=== PATIENT | female | born 1995 | race Caucasian/White ===

== ENCOUNTER 2019-10-25 13:34 | Inpatient (IN) | payer OTHER, SELFPAY ==
[2019-10-25] VITALS (59 sets, daily range): BP systolic 72–108; BP diastolic 40–67; PULSE 108–212; RESP 19–26; TEMP 36.8–39.4; O2SAT 96–100; BMI 28.3; BMI 27.8
[2019-10-25 10:23] LABS: ROM Internal Control Test YES-OK TO RESULT pt. (Internal QC); ROM Patient Test Negative (Negative)
[2019-10-25 10:26] LABS: Fetal Fibronectin Negative
[2019-10-25 10:36] LABS: Absolute Lymphocyte Count 1.05 X10^3/uL (0.83-4.51); Absolute Neutrophil Count 17.5 X10^3/uL (2.0-7.7); Basophil# 0.04 X10^3/uL; Basophil% 0.2 % (0-1); Eosinophil# 0.04 X10^3/uL; Eosinophils% 0.2 % (0-5); Hematocrit 32.9 % (37-47); Hemoglobin 11.3 g/dL (12.0-15.0); Lymphocyte # 1.05 X10^3/ul (4.0); Lymphocyte % 5.3 % (19-41); Mean Corp Hgb Conc 34.3 g/dL (32-36); Mean Corpuscular Hgb 29.6 pg (27.0-32.0); Mean Corpuscular Volume 86.1 fL (81-99); Mean Platelet Vol. 9.4 fl (6.2-12.0); Monocyte# 0.69 X10^3/uL; Monocyte% 3.5 % (0-10); NRBC Flagged by Analyzer 0 % (0-5); Neutrophil % 88.5 % (47-70); POSITIVE MORPHOLOGY YES; Platelet Count 219 K/mm3 (150-450); RBC Distribution Width CV 13.4 % (11.6-14.6); RBC Distribution Width SD 41.8 fl (35.1-43.9); Red Blood Count 3.82 M/mm3 (4.2-5.4); White Blood Count 19.8 K/mm3 (4.4-11.0)
[2019-10-25 10:37] LABS: Differential Indicated SCAN CRITERIA MET
[2019-10-25] MEDS: Lactated Ringers 1,000 ML 999 ML IV (10:43)
[2019-10-25] MEDS: Acetaminophen 500 MG Tablet 1000 MG PO (10:45)
[2019-10-25 10:55] LABS: ALB/GLOB Ratio 0.6 RATIO (0.9-2.4); AST(SGOT) 25 U/L (15-37); Alanine Aminotransfer ALT/SGPT 21 U/L (13-56); Albumin, Serum 2.8 g/dL (3.2-5.0); Alkaline Phosphatase 89 U/L (45-117); Anion Gap 10 (5-15); BUN 3 mg/dL (7-18); BUN/Creat Ratio 5.7 RATIO (10-20); Calcium,Total 8.1 mg/dL (8.5-10.1); Chloride 97 mmol/L (98-107); Creatinine, Serum 0.52 mg/dL (0.55-1.02); EST Glomerular Filtration Rate 150 mL/min (>60); Est Glom Filt Rate - Afr Amer 182 mL/min (>60); Estimated Creatinine Clearance 135.62 ml/min; Globulin 4.6 g/dL (2.2-4.2); Glucose 106 mg/dL (74-106); Potassium 2.6 mmol/L (3.5-5.1); Protein, Total 7.4 g/dL (6.4-8.2); Sodium Level 131 mmol/L (136-145)
[2019-10-25 10:59] LABS: Differential Comment SCANNED
--- NOTE | 2019-10-25 12:27 | PCM.CONS.GEN ---
Problem List (1) SIRS (systemic inflammatory response syndrome) Status: Acute Reason for Consult Date of Consultation: 10/25/19 Reason for Consultation: Evaluation for possible sepsis History of Present Illness: The patient is a 24 year old F who is 26 weeks who was seen and evaluated at the OB unit for fever chills and myalgias. Patient symptoms started 4 days prior to her admission. Patient denied any travel. Denies any sick contact. Patient was found to have markedly elevated WBC count, febrile with tachycardia. An assessment of sepsis of undetermined etiology was made. The hospitalist service was consulted to assist with evaluation and management of patient. Past Medical History Allergies No Known Allergies Allergy (Verified 10/25/19 10:11) Home Medications: Ambulatory Orders Medication Instructions Recorded Vits [Prenatabs FA] 1 tab PO DAILY 10/25/19 Patient Problems: Active and Suspected Problems SIRS (systemic inflammatory response syndrome) (Acute) - Physical Exam Vitals/I&O's: Vital Signs Temp Pulse BP Pulse Ox 102.9 F H 124 H 102/59 L 96 10/25/19 10:41 10/25/19 11:29 10/25/19 09:33 10/25/19 11:29 Weight: 72.575 kg Body Mass Index (BMI) 28.3 Laboratory Results 10/25/19 09:15: WBC 19.8 H, RBC 3.82 L, Hgb 11.3 L, Hct 32.9 L, MCV 86.1, MCH 29.6, MCHC 34.3, RDW Std Deviation 41.8, RDW Coeff of [place] 13.4, Plt Count 219, MPV 9.4, Immature Gran % (Auto) 2.300 H, Neut % (Auto) 88.5 H, Lymph % (Auto) 5.3 L, [place] % (Auto) 3.5, Eos % (Auto) 0.2, Baso % (Auto) 0.2, Absolute Neuts (auto) 17.5 H, Absolute Lymphs (auto) 1.05, Nucleated RBC % 0, Differential Comment SCANNED 10/25/19 09:15: Sodium 131 L, Potassium 2.6 L*, Chloride 97 L, Carbon Dioxide 24.0, Anion Gap 10, BUN 3 L, Creatinine 0.52 L, Estim Creat Clear Calc 135.62, Est GFR (MDRD) Af Amer 182, Est GFR (MDRD) Non-Af 150, BUN/Creatinine Ratio 5.7 L, Glucose 106, Calcium 8.1 L, Total Bilirubin 0.90, AST 25, ALT 21, Alkaline Phosphatase 89, Total Protein 7.4, Albumin 2.8 L, Globulin 4.6 H, Albumin/Globulin Ratio 0.6 L 10/25/19 09:42: Fibronectin Negative 10/25/19 09:42: Vag Amniotic Fld Detect Negative Assessment/Plan All Active Problems SIRS (systemic inflammatory response syndrome) (Acute)
--- NOTE | 2019-10-25 12:30 | RAD_ITS ---
STUDY: X-RAY CHEST REASON FOR EXAM: Female, 24 years old. Pneumonia, fever, cough, body aches, TECHNIQUE: Single AP portable view of the chest. COMPARISON: None. FINDINGS: There is evidence of a patchy right lower lobe infiltrate as well as a right suprahilar infiltrate. There is no demonstrated pleural abnormality. Normal size heart. Normal mediastinum and joel. Normal visualized pulmonary arteries. Normal visualized aortic arch and descending thoracic aorta. Normal visualized thoracic spine. Normal visualized ribs, clavicles, and shoulders. There is no demonstrated abnormality of the visualized soft tissue structures of the upper abdomen. RAD/Chest 1 View (Portable) IMPRESSION: Patchy right lower lobe and right suprahilar infiltrates. Electronically Signed: Luca Garcia, at 15:48 EDT , Service support ,
[2019-10-25 13:29] LABS: Mucous, Urine 0 SEEN /hpf (<or=2+); Red Blood Cells-Urine 0 SEEN /hpf (0-5)
[2019-10-25 13:32] LABS: Color, Urine Yellow (Yellow); Glucose, Dipstick Normal (Normal); Leukocyte Esterase-Dipstick 100 /ul (Negative); Nitrite-Dipstick Negative (Negative); Occult Blood-Urine 25 /ul (Negative); Protein-Dipstick Negative (Negative); Specific Gravity, Urine 1.005 (1.002-1.030); Urine Bilirubin Dipstick Negative (Negative); Urine Clarity Sl. Cloudy (Clear); Urine Urobilinogen Normal (Normal); Urine pH 6.5 (5.0 - 8.0)
[2019-10-25 13:36] LABS: Ketone-Dipstick 150 mg/dl (Negative)
[2019-10-25 13:38] LABS: Bacteria 1+ /hpf (None Seen); Squamous Epithelial Cells - UA 5-10 SEEN /hpf (5-10); White Blood Cells 0-5 SEEN /hpf (0-5)
--- NOTE | 2019-10-25 13:54 | HP.PCM_ITS ---
Problem List (1) SIRS (systemic inflammatory response syndrome) Status: Acute (2) Status: Acute Qualifiers: Weeks of gestation: 26 weeks Qualified Code(s): Z3A.26 - 26 weeks gestation of History of Present Illness Date of Admission: 10/25/19 Chief Complaint: Generalized malaise The patient is a 24 year old F who is 26 weeks who was seen and evaluated at the OB unit for fever chills and myalgias. Patient symptoms started 4 days prior to her admission. Patient denied any travel. Denies any sick contact. Patient was found to have markedly elevated WBC count, febrile with tachycardia. An assessment of sepsis of undetermined etiology was made. The hospitalist service was consulted to assist with evaluation and management of patient. Immediately after my evaluation patient was reported to be hypotensive with systolic blood pressure in the 80s. Decision was made to transfer patient to the intensive care unit for subsequent inpatient evaluation Past Medical History Allergies No Known Allergies Allergy (Verified 10/25/19 10:11) Home Medications: Ambulatory Orders Medication Instructions Recorded Vits [Prenatabs FA] 1 tab PO DAILY 10/25/19 Lives: Spouse/ Significant Other - *Family History Paternal History Items: - - Osteoarthritis Review of Systems Constitutional: Reports: Anorexia, Chills, Fever, Malaise, Fatigue HEENT: Denies: Head Aches, Sinus Congestion, Sinus Drainage Cardiovascular: Reports: Chest Pain Respiratory: Reports: Cough, Shortness of Breath Genitourinary: Denies: Dysuria, Frequency, Hematuria, Urgency Musculoskeletal: Denies: Joint Pain, Joint Tenderness Skin: Denies: Rash Neurological: Denies: Focal weakness, Numbness, Tingling Psychiatric: Denies: Homicidal Ideations, Suicidal Ideations Hematologic/ Lymphatic: Reports: Adenopathy VTE Information - Inpt Only VTE Present on Admission: No VTE Mechan Device Prophylaxis: Thigh High DARLENE Hose Reason prophylaxis not ordered:: Treatment Not Indicated Patient Problems: Active and Suspected Problems SIRS (systemic inflammatory response syndrome) (Acute) (Acute) Objective: GENERAL: cooperative appears ill looking HEENT: Atraumatic; EYES; Anicteric, Normal Conjunctiva NECK; supple, normal thyroid, RESPIRATORY: Diminished to auscultation CARDIOVASCULAR: Regular S1 S2, tachycardic GI: soft, normoactive bowel sounds, : Gravid uterus EXTREMITIES: No edema, no clubbing, MUSCULOSKELETAL: no muscle waisting NEURO: Awake; no lateralizing signs. SKIN: No Rash PSYCH; Flat affect - Physical Exam Vitals/I&O's: Vital Signs Temp Pulse BP Pulse Ox 99.0 F 109 H 101/52 L 100 10/25/19 12:49 10/25/19 13:48 10/25/19 13:28 10/25/19 13:48 Weight: 72.575 kg Body Mass Index (BMI) 28.3 Intake and Output for Last 24 Hours 10/23/19 10/24/19 10/25/19 23:59 23:59 23:59 Intake Total 1000 / 1000 Balance 1000 / 1000 Laboratory Results 10/25/19 09:15: WBC 19.8 H, RBC 3.82 L, Hgb 11.3 L, Hct 32.9 L, MCV 86.1, MCH 29.6, MCHC 34.3, RDW Std Deviation 41.8, RDW Coeff of [place] 13.4, Plt Count 219, MPV 9.4, Immature Gran % (Auto) 2.300 H, Neut % (Auto) 88.5 H, Lymph % (Auto) 5.3 L, [place] % (Auto) 3.5, Eos % (Auto) 0.2, Baso % (Auto) 0.2, Absolute Neuts (auto) 17.5 H, Absolute Lymphs (auto) 1.05, Nucleated RBC % 0, Differential Comment SCANNED 10/25/19 09:15: Sodium 131 L, Potassium 2.6 L*, Chloride 97 L, Carbon Dioxide 24.0, Anion Gap 10, BUN 3 L, Creatinine 0.52 L, Estim Creat Clear Calc 135.62, Est GFR (MDRD) Af Amer 182, Est GFR (MDRD) Non-Af 150, BUN/Creatinine Ratio 5.7 L, Glucose 106, Calcium 8.1 L, Total Bilirubin 0.90, AST 25, ALT 21, Alkaline Phosphatase 89, Total Protein 7.4, Albumin 2.8 L, Globulin 4.6 H, Albumin/Globulin Ratio 0.6 L 10/25/19 09:42: Fibronectin Negative 10/25/19 09:42: Vag Amniotic Fld Detect Negative 10/25/19 13:15: Urine Color Yellow, Urine Clarity Sl. Cloudy, Urine pH 6.5, Ur Specific [place] 1.005, Urine Protein Negative, Urine Glucose (UA) Normal, Urine Ketones 150 H, Urine Occult Blood 25 H, Urine Nitrite Negative, Urine Bilirubin Negative, Urine Urobilinogen Normal, Ur Leukocyte Esterase 100 H, Urine RBC 0 SEEN, Urine WBC 0-5 SEEN, Ur Squamous Epith Cells 5-10 SEEN, Urine Bacteria 1+, Urine Mucus 0 SEEN Assessment/Plan All Active Problems SIRS (systemic inflammatory response syndrome) (Acute) (Acute) Jazmyn is a 24-year-old lady who is 26 weeks presented with generalized malaise associated with fever shortness of breath and cough 1. Severe sepsis ?Etiology not clear at this point patient had significant leukocytosis with a left shift. Ordered chest x-ray urinalysis as well as influenza assay if negative will pursue a COVID 19 test. Patient was transferred from the OB unit to the intensive care unit started on aggressive IV fluid resuscitation broad- spectrum antibiotic therapy with consultation placed to Dr. Ball with intensive care 2. Suspected viral syndrome management as above 3. 26 weeks of gestation ?Consult placed to patient [employer] Joseph Maurer 4. Hypokalemia ?Corrected per protocol 5. Hyponatremia -do suspect hypovolemic hyponatremia patient on saline with subsequent monitoring of electrolyte 6. DVT prophylaxis ?Low risk to Inpatient E&M: [id number] Init Hosp L3
[2019-10-25 15:31] LABS: Prothrombin Time (Protime)PT. 13.2 SECONDS (11.7-14.9)
[2019-10-25 15:32] LABS: Partial Thromboplast Time 34.8 Seconds (24.1-36.2)
[2019-10-25 15:46] LABS: Lactic Acid 1.6 mmol/L (0.4-1.9)
--- NOTE | 2019-10-25 15:53 | NURSING ---
1430 pt transfered to ICU per Dr Bowen order , via bed with droplet precautions.
[2019-10-25 16:01] LABS: ALB/GLOB Ratio 0.6 RATIO (0.9-2.4); AST(SGOT) 22 U/L (15-37); Alanine Aminotransfer ALT/SGPT 20 U/L (13-56); Albumin, Serum 2.6 g/dL (3.2-5.0); Alkaline Phosphatase 84 U/L (45-117); Anion Gap 10 (5-15); BUN 2 mg/dL (7-18); BUN/Creat Ratio 3.8 RATIO (10-20); Calcium,Total 8.1 mg/dL (8.5-10.1); Chloride 99 mmol/L (98-107); Creatinine, Serum 0.53 mg/dL (0.55-1.02); EST Glomerular Filtration Rate 148 mL/min (>60); Est Glom Filt Rate - Afr Amer 179 mL/min (>60); Estimated Creatinine Clearance 127.22 ml/min; Globulin 4.2 g/dL (2.2-4.2); Glucose 119 mg/dL (74-106); Potassium 2.4 mmol/L (3.5-5.1); Protein, Total 6.8 g/dL (6.4-8.2); Sodium Level 132 mmol/L (136-145)
[2019-10-25 16:02] LABS: CPK Total, Creatine Kinase 57 U/L (26-192)
[2019-10-25] MEDS: Acetaminophen 325 MG Tablet 650 MG PO ×2 (16:39→23:05)
[2019-10-25] MEDS: Oseltamivir Phosphate 75 MG Capsule PO ×2 (16:40→22:48)
--- NOTE | 2019-10-25 17:11 | PCM.RX.CS ---
Consult Pharmacy has been consulted to manage selected antiobiotic: Vancomycin Type of Consult: New start Suspected Infection: Sepsis Prior Doses of Antibiotics Received/Current Regimen: Received 1750mg iv x 1. Labs: Sodium 132 mmol/L (136-145) L 10/25/19 15:05 Potassium 2.4 mmol/L (3.5-5.1) L* 10/25/19 15:05 Chloride 99 mmol/L (98-107) 10/25/19 15:05 Carbon Dioxide 23.0 mmol/L (21.0-32.0) 10/25/19 15:05 Anion Gap 10 (5-15) 10/25/19 15:05 BUN 2 mg/dL (7-18) L 10/25/19 15:05 Creatinine 0.53 mg/dL (0.55-1.02) L 10/25/19 15:05 Est GFR (MDRD) Af Amer 179 mL/min (>60) 10/25/19 15:05 Est GFR (MDRD) Non-Af 148 mL/min (>60) 10/25/19 15:05 BUN/Creatinine Ratio 3.8 RATIO (10-20) L 10/25/19 15:05 Glucose 119 mg/dL (74-106) H 10/25/19 15:05 Microbiology: Microbiology 10/25/19 13:41 Mucosa - Nasopharyngeal Influenza Types A,B Direct FA (ARA) - Final Influenzae B Weight used for dosin.1 kg Estimated Creatinine Clearance: ~135ml/min Goal Trough: 15-20 mcg/mL Pharmacy Plan for Drug Dosing: Per pharmacokinetic review, will begin 1gm iv q8h. Trough level ordered for 3.27.20 with goal range of 15-20mcg/ml. Pharmacy Service will continue to monitor and adjust dosing as required. Follow-Up Labs: Trough Vancomycin - 3.27.20 @2330 before 2400 dose
--- NOTE | 2019-10-25 17:58 | OB.TRI.NOTE ---
History of Present Illness Date of Service: 10/25/19 Was patient seen by the physician?: No Reason For Visit: CONTRACTIONS,FEVER,COUGH,BODY ACHES Date of Service: 10/25/19 Final UNIQUE: 01/30/20 Gestational age: 26 Weeks and 1 Days History of Present Illness: Patient presented via squad with fever, cough & contractions. She complained or urinary leakage and was unsure possible LOF. Denies VB. Also reports good FM. Allergies No Known Allergies Allergy (Verified 10/25/19 10:11) Laboratory Studies: Laboratory Tests 10/25/19 10/25/19 10/25/19 Range/Units 15:05 15:05 15:05 WBC (4.4-11.0) K/mm3 RBC (4.2-5.4) M/mm3 Hgb (12.0-15.0) g/dL Hct (37-47) % MCV (81-99) fL MCH (27.0-32.0) pg MCHC (32-36) g/dL RDW Std Deviation (35.1-43.9) fl RDW Coeff of [place] (11.6-14.6) % Plt Count (150-450) K/mm3 MPV (6.2-12.0) fl Immature Gran % (Auto) (0.0-0.9) % Neut % (Auto) (47-70) % Lymph % (Auto) (19-41) % [place] % (Auto) (0-10) % Eos % (Auto) (0-5) % Baso % (Auto) (0-1) % Absolute Neuts (auto) (2.0-7.7) X10^3/uL Absolute Lymphs (auto) (0.83-4.51) X10^3/uL Nucleated RBC % (0-5) % Differential Comment PT 13.2 (11.7-14.9) SECONDS INR 1.0 APTT 34.8 (24.1-36.2) Seconds Sodium (136-145) mmol/L Potassium (3.5-5.1) mmol/L Chloride (98-107) mmol/L Carbon Dioxide (21.0-32.0) mmol/L Anion Gap (5-15) BUN (7-18) mg/dL Creatinine (0.55-1.02) mg/dL Estim Creat Clear Calc ml/min Est GFR (MDRD) Af Amer (>60) mL/min Est GFR (MDRD) Non-Af (>60) mL/min BUN/Creatinine Ratio (10-20) RATIO Glucose (74-106) mg/dL Lactic Acid 1.6 (0.4-1.9) mmol/L Calcium (8.5-10.1) mg/dL Total Bilirubin (0.20-1.00) mg/dL AST (15-37) U/L ALT (13-56) U/L Alkaline Phosphatase (45-117) U/L Total Creatine Kinase 57 (26-192) U/L Total Protein (6.4-8.2) g/dL Albumin (3.2-5.0) g/dL Globulin (2.2-4.2) g/dL Albumin/Globulin Ratio (0.9-2.4) RATIO Urine Color (Yellow) Urine Clarity (Clear) Urine pH (5.0 - 8.0) Ur Specific [place] (1.002-1.030) Urine Protein (Negative) mg/dl Urine Glucose (UA) (Normal) mg/dl Urine Ketones (Negative) mg/dl Urine Occult Blood (Negative) /ul Urine Nitrite (Negative) Urine Bilirubin (Negative) mg/dL Urine Urobilinogen (Normal) mg/dl Ur Leukocyte Esterase (Negative) /ul Urine RBC (0-5) /hpf Urine WBC (0-5) /hpf Ur Squamous Epith Cells (5-10) /hpf Urine Bacteria (None Seen) /hpf Urine Mucus (<or=2+) /hpf Vag Amniotic Fld Detect (Negative) Fibronectin 10/25/19 10/25/19 10/25/19 Range/Units 15:05 13:15 09:42 WBC (4.4-11.0) K/mm3 RBC (4.2-5.4) M/mm3 Hgb (12.0-15.0) g/dL Hct (37-47) % MCV (81-99) fL MCH (27.0-32.0) pg MCHC (32-36) g/dL RDW Std Deviation (35.1-43.9) fl RDW Coeff of [place] (11.6-14.6) % Plt Count (150-450) K/mm3 MPV (6.2-12.0) fl Immature Gran % (Auto) (0.0-0.9) % Neut % (Auto) (47-70) % Lymph % (Auto) (19-41) % [place] % (Auto) (0-10) % Eos % (Auto) (0-5) % Baso % (Auto) (0-1) % Absolute Neuts (auto) (2.0-7.7) X10^3/uL Absolute Lymphs (auto) (0.83-4.51) X10^3/uL Nucleated RBC % (0-5) % Differential Comment PT (11.7-14.9) SECONDS INR APTT (24.1-36.2) Seconds Sodium 132 L (136-145) mmol/L Potassium 2.4 L* (3.5-5.1) mmol/L Chloride 99 (98-107) mmol/L Carbon Dioxide 23.0 (21.0-32.0) mmol/L Anion Gap 10 (5-15) BUN 2 L (7-18) mg/dL Creatinine 0.53 L (0.55-1.02) mg/dL Estim Creat Clear Calc 127.22 ml/min Est GFR (MDRD) Af Amer 179 (>60) mL/min Est GFR (MDRD) Non-Af 148 (>60) mL/min BUN/Creatinine Ratio 3.8 L (10-20) RATIO Glucose 119 H (74-106) mg/dL Lactic Acid (0.4-1.9) mmol/L Calcium 8.1 L (8.5-10.1) mg/dL Total Bilirubin 1.00 (0.20-1.00) mg/dL AST 22 (15-37) U/L ALT 20 (13-56) U/L Alkaline Phosphatase 84 (45-117) U/L Total Creatine Kinase (26-192) U/L Total Protein 6.8 (6.4-8.2) g/dL Albumin 2.6 L (3.2-5.0) g/dL Globulin 4.2 (2.2-4.2) g/dL Albumin/Globulin Ratio 0.6 L (0.9-2.4) RATIO Urine Color Yellow (Yellow) Urine Clarity Sl. Cloudy (Clear) Urine pH 6.5 (5.0 - 8.0) Ur Specific [place] 1.005 (1.002-1.030) Urine Protein Negative (Negative) mg/dl Urine Glucose (UA) Normal (Normal) mg/dl Urine Ketones 150 H (Negative) mg/dl Urine Occult Blood 25 H (Negative) /ul Urine Nitrite Negative (Negative) Urine Bilirubin Negative (Negative) mg/dL Urine Urobilinogen Normal (Normal) mg/dl Ur Leukocyte Esterase 100 H (Negative) /ul Urine RBC 0 SEEN (0-5) /hpf Urine WBC 0-5 SEEN (0-5) /hpf Ur Squamous Epith Cells 5-10 SEEN (5-10) /hpf Urine Bacteria 1+ (None Seen) /hpf Urine Mucus 0 SEEN (<or=2+) /hpf Vag Amniotic Fld Detect Negative (Negative) Fibronectin 10/25/19 10/25/19 10/25/19 Range/Units 09:42 09:15 09:15 WBC 19.8 H (4.4-11.0) K/mm3 RBC 3.82 L (4.2-5.4) M/mm3 Hgb 11.3 L (12.0-15.0) g/dL Hct 32.9 L (37-47) % MCV 86.1 (81-99) fL MCH 29.6 (27.0-32.0) pg MCHC 34.3 (32-36) g/dL RDW Std Deviation 41.8 (35.1-43.9) fl RDW Coeff of [place] 13.4 (11.6-14.6) % Plt Count 219 (150-450) K/mm3 MPV 9.4 (6.2-12.0) fl Immature Gran % (Auto) 2.300 H (0.0-0.9) % Neut % (Auto) 88.5 H (47-70) % Lymph % (Auto) 5.3 L (19-41) % [place] % (Auto) 3.5 (0-10) % Eos % (Auto) 0.2 (0-5) % Baso % (Auto) 0.2 (0-1) % Absolute Neuts (auto) 17.5 H (2.0-7.7) X10^3/uL Absolute Lymphs (auto) 1.05 (0.83-4.51) X10^3/uL Nucleated RBC % 0 (0-5) % Differential Comment SCANNED PT (11.7-14.9) SECONDS INR APTT (24.1-36.2) Seconds Sodium 131 L (136-145) mmol/L Potassium 2.6 L* (3.5-5.1) mmol/L Chloride 97 L (98-107) mmol/L Carbon Dioxide 24.0 (21.0-32.0) mmol/L Anion Gap 10 (5-15) BUN 3 L (7-18) mg/dL Creatinine 0.52 L (0.55-1.02) mg/dL Estim Creat Clear Calc 135.62 ml/min Est GFR (MDRD) Af Amer 182 (>60) mL/min Est GFR (MDRD) Non-Af 150 (>60) mL/min BUN/Creatinine Ratio 5.7 L (10-20) RATIO Glucose 106 (74-106) mg/dL Lactic Acid (0.4-1.9) mmol/L Calcium 8.1 L (8.5-10.1) mg/dL Total Bilirubin 0.90 (0.20-1.00) mg/dL AST 25 (15-37) U/L ALT 21 (13-56) U/L Alkaline Phosphatase 89 (45-117) U/L Total Creatine Kinase (26-192) U/L Total Protein 7.4 (6.4-8.2) g/dL Albumin 2.8 L (3.2-5.0) g/dL Globulin 4.6 H (2.2-4.2) g/dL Albumin/Globulin Ratio 0.6 L (0.9-2.4) RATIO Urine Color (Yellow) Urine Clarity (Clear) Urine pH (5.0 - 8.0) Ur Specific [place] (1.002-1.030) Urine Protein (Negative) mg/dl Urine Glucose (UA) (Normal) mg/dl Urine Ketones (Negative) mg/dl Urine Occult Blood (Negative) /ul Urine Nitrite (Negative) Urine Bilirubin (Negative) mg/dL Urine Urobilinogen (Normal) mg/dl Ur Leukocyte Esterase (Negative) /ul Urine RBC (0-5) /hpf Urine WBC (0-5) /hpf Ur Squamous Epith Cells (5-10) /hpf Urine Bacteria (None Seen) /hpf Urine Mucus (<or=2+) /hpf Vag Amniotic Fld Detect (Negative) Fibronectin Negative Physical Exam Vitals: Vital Signs Temp Pulse Resp BP Pulse Ox 99.0 F 124 H 24 H 107/66 100 10/25/19 16:00 10/25/19 17:00 10/25/19 17:00 10/25/19 17:00 10/25/19 17:00 NST - FHR Rate Baby A Baseline: 145 Variability:: Minimal, Moderate Accelerations:: None Decelerations:: Variable NST Reactive:: Appropriate for gestational age Uterine Activity:: Irritability with some occ ctxs Impression/Plan 24yo @ 26&1 Threatened PTL - cvx closed per RN. FFN & ROM Plus negative. Fever & cough - patient admitted to ICU by medicine. She has flu(B) & sepsis. FWB - discussed with GREGORIO. Plan for daily NST. Will hold on BMZ at this time.
[2019-10-25 19:03] LABS: M R Staph aureus DNA By PCR Negative (Negative); Probe Check PASS; Specimen Processing Control PASS
[2019-10-25] MEDS: proCHLORPERazine 10 MG/2 ML Vial IV (19:58)
[2019-10-25] MEDS: 0.9% Saline Lock 10 ML Syringe IV (19:58)
[2019-10-26] VITALS (57 sets, daily range): BP systolic 71–113; BP diastolic 38–79; PULSE 86–121; RESP 14–25; TEMP 36.7–37.6; O2SAT 93–140
[2019-10-26] MEDS: Vancomycin IV 1,000 MG/200 ML BAG 200 MG IV ×2 (00:23→08:18)
[2019-10-26] MEDS: TITRATION PARAMETER CHANGE 1 EACH IV (03:29)
[2019-10-26 06:17] LABS: Absolute Lymphocyte Count 1.36 X10^3/uL (0.83-4.51); Absolute Neutrophil Count 18.5 X10^3/uL (2.0-7.7); Basophil# 0.03 X10^3/uL; Basophil% 0.1 % (0-1); Eosinophil# 0.05 X10^3/uL; Eosinophils% 0.2 % (0-5); Hematocrit 28.1 % (37-47); Hemoglobin 9.2 g/dL (12.0-15.0); Lymphocyte # 1.36 X10^3/ul (4.0); Lymphocyte % 6.4 % (19-41); Mean Corp Hgb Conc 32.7 g/dL (32-36); Mean Corpuscular Hgb 28.8 pg (27.0-32.0); Mean Corpuscular Volume 88.1 fL (81-99); Mean Platelet Vol. 9.3 fl (6.2-12.0); Monocyte# 0.76 X10^3/uL; Monocyte% 3.6 % (0-10); NRBC Flagged by Analyzer 0 % (0-5); Neutrophil # 18.53 X10^3/uL (2.7-7.7); Neutrophil % 87.4 % (47-70); POSITIVE MORPHOLOGY YES; Platelet Count 184 K/mm3 (150-450); RBC Distribution Width CV 13.8 % (11.6-14.6); RBC Distribution Width SD 44.6 fl (35.1-43.9); Red Blood Count 3.19 M/mm3 (4.2-5.4); White Blood Count 21.2 K/mm3 (4.4-11.0)
[2019-10-26 06:18] LABS: Differential Indicated SCAN CRITERIA MET
--- NOTE | 2019-10-26 06:28 | PCM.CON.CC ---
Reason for Consult Date of Consultation: 10/26/19 Reason for Consultation: Septic Shock History of Present Illness: The patient is a 24-year-old female, with a history as outlined below, who presented to the ICU from OB triage with fevers, chills and myalgias on October 24. The patient was also noted to have compromised hemodynamics as well. The patient is currently at 26 weeks. The patient did have an initial presenting temperature of 101.4 ?F. She was also tachycardic with tenuous hemodynamics. Systolic blood pressures at one point were in the 70s and 80s. Initial laboratory evaluation revealed an elevated white blood cell count to 20,000. Coagulation profile was within normal limits. Chemistry profile was significant for a sodium of 131, potassium of 2.6, chloride of 97 and creatinine of 0.52. Lactate was within normal limits at 1.6. Urinalysis was positive for leukocyte esterase 1+ urine bacteria. MRSA screen was negative. Plain film chest x-ray revealed a patchy right lower lobe infiltrate. Subsequent infectious work-up revealed that the patient was positive for influenza B with blood cultures that were positive for Streptococcus pneumoniae. The patient received supplemental IV fluid hydration and was started on broad-spectrum antimicrobials. The patient is currently documented to be overall net +3.4 L. Despite adequate volume resuscitation, the patient did have to be started on vasopressor support overnight. She is currently on Levophed at 8 mcg/min. Past Medical History Allergies No Known Allergies Allergy (Verified 10/25/19 10:11) Home Medications: Ambulatory Orders Medication Instructions Recorded Vits [Prenatabs FA] 1 tab PO DAILY 10/25/19 Lives: Spouse/ Significant Other Smoking Status: Never smoker - *Family History Paternal History Items: - - Osteoarthritis Review of Systems Constitutional: Reports: Chills, Fever, Malaise, Fatigue Eyes: Denies: Blurred vision, Double vision HEENT: Denies: Head Aches, Sinus Congestion, Sinus Drainage Cardiovascular: Denies: Chest Pain, Palpitations Respiratory: Reports: Cough, Shortness of Breath Gastrointestinal: Denies: Abdominal Pain, Nausea, Vomiting Genitourinary: Denies: Dysuria Musculoskeletal: Denies: Joint Pain, Joint Tenderness Skin: Denies: Rash, Wounds Neurological: Denies: Numbness, Tingling, Focal weakness Psychiatric: Denies: Anxiety, Depression, Homicidal Ideations, Suicidal Ideations Hematologic/ Lymphatic: Denies: Easy Bruising, Easy Bleeding Patient Problems: Active and Suspected Problems SIRS (systemic inflammatory response syndrome) (Acute) (Acute) Objective: The patient's most recent lab work, culture data and imaging studies have all been personally reviewed. Rapid influenza screen was positive for influenza B. Blood culture was positive for Streptococcus pneumoniae. - Physical Exam Vitals/I&O's: Vital Signs Temp Pulse Resp BP Pulse Ox 99.6 F H 98 21 H 94/58 L 98 10/26/19 00:00 10/26/19 05:01 10/26/19 05:01 10/26/19 05:01 10/26/19 05:01 Oxygen Delivery Method Room Air Weight: 157 lb 6.561 oz Body Mass Index (BMI) 27.8 Intake and Output for Last 24 Hours 10/24/19 10/25/19 10/26/19 23:59 23:59 23:59 Intake Total 3933.33 / 4173.33 2048.72 / 2048.72 Output Total 1999 / 1999 1000 / 1000 Balance 1933.33 / 2173.33 1048.72 / 1048.72 General: Alert, Cooperative, No apparent distress, - - Nontoxic in appearance. HEENT: Atraumatic, PERRLA, Normocephalic Oral: Dry Mucosa Neck: Supple, No Nodes, Trachea Midline Lungs: No rhonchi, No wheeze, No rales Cardiovascular: Regular rate, Regular Rhythm, Normal S1, Normal S2, No murmurs Abdomen: Bowel Sounds Present, Soft, Non Tender Extremities: No clubbing, No cyanosis, No edema Skin: No breakdown Musculoskeletal: No Tenderness to Palpation of Joints or Extremities Lymphatic: No Cervical, Supraclavicular, or Inguinal Adenopathy Neurological: Cranial nerves II-XII grossly intact, Neuro grossly intact Psych/Mental Status: Normal Affect, Appropriate Labs (Last 48 Hours) 10/25/19 10/25/19 10/25/19 09:15 09:15 09:42 WBC 19.8 H RBC 3.82 L Hgb 11.3 L Hct 32.9 L MCV 86.1 MCH 29.6 MCHC 34.3 RDW Std Deviation 41.8 RDW Coeff of [place] 13.4 Plt Count 219 MPV 9.4 Immature Gran % (Auto) 2.300 H Neut % (Auto) 88.5 H Lymph % (Auto) 5.3 L [place] % (Auto) 3.5 Eos % (Auto) 0.2 Baso % (Auto) 0.2 Absolute Neuts (auto) 17.5 H Absolute Lymphs (auto) 1.05 Nucleated RBC % 0 Differential Comment SCANNED PT INR APTT Sodium 131 L Potassium 2.6 L* Chloride 97 L Carbon Dioxide 24.0 Anion Gap 10 BUN 3 L Creatinine 0.52 L Estim Creat Clear Calc 135.62 Est GFR (MDRD) Af Amer 182 Est GFR (MDRD) Non-Af 150 BUN/Creatinine Ratio 5.7 L Glucose 106 Lactic Acid Calcium 8.1 L Total Bilirubin 0.90 AST 25 ALT 21 Alkaline Phosphatase 89 Total Creatine Kinase Total Protein 7.4 Albumin 2.8 L Globulin 4.6 H Albumin/Globulin Ratio 0.6 L Urine Color Urine Clarity Urine pH Ur Specific [place] Urine Protein Urine Glucose (UA) Urine Ketones Urine Occult Blood Urine Nitrite Urine Bilirubin Urine Urobilinogen Ur Leukocyte Esterase Urine RBC Urine WBC Ur Squamous Epith Cells Urine Bacteria Urine Mucus Vag Amniotic Fld Detect MRSA (PCR) Fibronectin Negative 10/25/19 10/25/19 10/25/19 09:42 13:15 15:05 WBC RBC Hgb Hct MCV MCH MCHC RDW Std Deviation RDW Coeff of [place] Plt Count MPV Immature Gran % (Auto) Neut % (Auto) Lymph % (Auto) [place] % (Auto) Eos % (Auto) Baso % (Auto) Absolute Neuts (auto) Absolute Lymphs (auto) Nucleated RBC % Differential Comment PT INR APTT Sodium 132 L Potassium 2.4 L* Chloride 99 Carbon Dioxide 23.0 Anion Gap 10 BUN 2 L Creatinine 0.53 L Estim Creat Clear Calc 127.22 Est GFR (MDRD) Af Amer 179 Est GFR (MDRD) Non-Af 148 BUN/Creatinine Ratio 3.8 L Glucose 119 H Lactic Acid Calcium 8.1 L Total Bilirubin 1.00 AST 22 ALT 20 Alkaline Phosphatase 84 Total Creatine Kinase Total Protein 6.8 Albumin 2.6 L Globulin 4.2 Albumin/Globulin Ratio 0.6 L Urine Color Yellow Urine Clarity Sl. Cloudy Urine pH 6.5 Ur Specific [place] 1.005 Urine Protein Negative Urine Glucose (UA) Normal Urine Ketones 150 H Urine Occult Blood 25 H Urine Nitrite Negative Urine Bilirubin Negative Urine Urobilinogen Normal Ur Leukocyte Esterase 100 H Urine RBC 0 SEEN Urine WBC 0-5 SEEN Ur Squamous Epith Cells 5-10 SEEN Urine Bacteria 1+ Urine Mucus 0 SEEN Vag Amniotic Fld Detect Negative MRSA (PCR) Fibronectin 10/25/19 10/25/19 10/25/19 15:05 15:05 15:05 WBC RBC Hgb Hct MCV MCH MCHC RDW Std Deviation RDW Coeff of [place] Plt Count MPV Immature Gran % (Auto) Neut % (Auto) Lymph % (Auto) [place] % (Auto) Eos % (Auto) Baso % (Auto) Absolute Neuts (auto) Absolute Lymphs (auto) Nucleated RBC % Differential Comment PT 13.2 INR 1.0 APTT 34.8 Sodium Potassium Chloride Carbon Dioxide Anion Gap BUN Creatinine Estim Creat Clear Calc Est GFR (MDRD) Af Amer Est GFR (MDRD) Non-Af BUN/Creatinine Ratio Glucose Lactic Acid 1.6 Calcium Total Bilirubin AST ALT Alkaline Phosphatase Total Creatine Kinase 57 Total Protein Albumin Globulin Albumin/Globulin Ratio Urine Color Urine Clarity Urine pH Ur Specific [place] Urine Protein Urine Glucose (UA) Urine Ketones Urine Occult Blood Urine Nitrite Urine Bilirubin Urine Urobilinogen Ur Leukocyte Esterase Urine RBC Urine WBC Ur Squamous Epith Cells Urine Bacteria Urine Mucus Vag Amniotic Fld Detect MRSA (PCR) Fibronectin 10/25/19 10/26/19 15:40 06:05 WBC 21.2 H RBC 3.19 L Hgb 9.2 L Hct 28.1 L MCV 88.1 MCH 28.8 MCHC 32.7 RDW Std Deviation 44.6 H RDW Coeff of [place] 13.8 Plt Count 184 MPV 9.3 Immature Gran % (Auto) 2.300 H Neut % (Auto) 87.4 H Lymph % (Auto) 6.4 L [place] % (Auto) 3.6 Eos % (Auto) 0.2 Baso % (Auto) 0.1 Absolute Neuts (auto) 18.5 H Absolute Lymphs (auto) 1.36 Nucleated RBC % 0 Differential Comment PT INR APTT Sodium Potassium Chloride Carbon Dioxide Anion Gap BUN Creatinine Estim Creat Clear Calc Est GFR (MDRD) Af Amer Est GFR (MDRD) Non-Af BUN/Creatinine Ratio Glucose Lactic Acid Calcium Total Bilirubin AST ALT Alkaline Phosphatase Total Creatine Kinase Total Protein Albumin Globulin Albumin/Globulin Ratio Urine Color Urine Clarity Urine pH Ur Specific [place] Urine Protein Urine Glucose (UA) Urine Ketones Urine Occult Blood Urine Nitrite Urine Bilirubin Urine Urobilinogen Ur Leukocyte Esterase Urine RBC Urine WBC Ur Squamous Epith Cells Urine Bacteria Urine Mucus Vag Amniotic Fld Detect MRSA (PCR) Negative Fibronectin Microbiology 10/25/19 15:05 Blood Culture (Wb) - Other Blood Culture - Preliminary 10/25/19 13:41 Mucosa - Nasopharyngeal Influenza Types A,B Direct FA (ARA) - Final Influenzae B Clinical Impression(s) from Imaging Studies Chest X-Ray 10/25/19 12:30 IMPRESSION: Patchy right lower lobe and right suprahilar infiltrates. Electronically Signed: Luca Alanismauricio, at 15:48 EDT , Service support , Current Medications Acetaminophen (Tylenol) 650 mg PO Q6H PRN PRN PRN Reason: Pain Score 1-10/Temp > 100.7 F Last Admin: 10/25/19 23:05 Dose: 650 mg Documented by: Al Hydroxide/Mg Hydroxide (Mylanta Ii) 30 ml PO Q6H PRN PRN PRN Reason: Gastric Burning Guaifenesin (Robitussin) 10 ml PO Q4H PRN PRN PRN Reason: COUGH Norepinephrine Bitartrate 8 mg (/ Sodium Chloride) 250 mls @ 9.375 mls/hr CONT INF .[id number] [facility]; Protocol Last Titration: 10/26/19 05:01 Dose: 8 mcg/min, 15 mls/hr Documented by: Potassium Chloride/Sodium Chloride () 1,000 mls @ 150 mls/hr IV .[id number] [facility] Last Admin: 10/26/19 05:20 Dose: 150 mls/hr Documented by: Vancomycin IV Pharmacy to Dose (1 ea/ Sodium Chloride) 500 mls @ 250 mls/hr IV PRN PRN; Protocol PRN Reason: Rx to Dose Cefepime HCl 2 gm/ Sodium (Chloride) 100 mls @ 200 mls/hr IV Q8 [facility] Last Infusion: 10/26/19 05:50 Dose: Infused Documented by: Vancomycin HCl (Vancomycin) 1,000 mg in 200 mls @ 200 mls/hr IV Q8H [facility] Last Infusion: 10/26/19 01:23 Dose: Infused Documented by: Melatonin (Melatonin) 3 mg PO QHS PRN PRN PRN Reason: INSOMNIA Oseltamivir Phosphate (Tamiflu) 75 mg PO BID [facility] Stop: 10/29/19 22:01 Last Admin: 10/25/19 22:48 Dose: 75 mg Documented by: Potassium Chloride (K-Dur) 20 meq PO BIDCM [facility] Last Admin: 10/25/19 16:40 Dose: 20 meq Documented by: Multivit/Folic Acid/Iron ([facility]abs [facility]) [facility] Prochlorperazine Edisylate (Compazine Iv) 10 mg IV Q6H PRN PRN PRN Reason: VOMITING Last Admin: 10/25/19 19:58 Dose: 10 mg Documented by: Promethazine HCl (Phenergan) 12.5 mg IV Q6H PRN PRN PRN Reason: NAUSEA/VOMITING Sodium Chloride () 10 - 40 ml IV UD PRN PRN Reason: SALINE FLUSH Last Admin: 10/25/19 19:58 Dose: 10 ml Documented by: Assessment/Plan Active and Suspected Problems SIRS (systemic inflammatory response syndrome) (Acute) (Acute) RECOMMENDATIONS: 1. Continue Levophed and wean to maintain a mean arterial pressure at or above [address] central venous catheter this morning. 3. Antibiotics can be de-escalated to ceftriaxone given positive blood culture results. 4. Continue Tamiflu with plans to complete a 5-day treatment course. 5. Encourage incentive spirometer use while in bed. IMPRESSIONS: 1. Septic shock secondary to influenza B infection coupled with streptococcal pneumonia/bacteremia The patient has been adequately volume resuscitated and remains on vasopressor support to maintain hemodynamic stability. Continue Levophed to maintain a mean arterial pressure at or above [address] central venous catheter this morning. Agree with continuing Tamiflu. Antibiotics can be de-escalated to ceftriaxone, given blood culture results. 2. Hypokalemia Electrolyte repletion as ordered. Recheck levels in the morning. 3. 26 weeks Continue monitoring and supportive measures per OB recommendations. TIME: 38 minutes of critical care time, independent of procedures, was spent addressing the patient's septic shock secondary to influenza B infection and pneumococcal pneumonia, hypokalemia, current status, review of all data and collaboration with the care team. ([id number]) [id number] Critical care first hour
[2019-10-26 06:37] LABS: Differential Comment SCANNED
[2019-10-26 06:54] LABS: ALB/GLOB Ratio 0.5 RATIO (0.9-2.4); AST(SGOT) 22 U/L (15-37); Alanine Aminotransfer ALT/SGPT 16 U/L (13-56); Albumin, Serum 2.1 g/dL (3.2-5.0); Alkaline Phosphatase 73 U/L (45-117); Anion Gap 9 (5-15); BUN 2 mg/dL (7-18); Calcium,Total 7.4 mg/dL (8.5-10.1); Chloride 112 mmol/L (98-107); EST Glomerular Filtration Rate 203 mL/min (>60); Est Glom Filt Rate - Afr Amer 245 mL/min (>60); Estimated Creatinine Clearance 168.57 ml/min; Globulin 3.9 g/dL (2.2-4.2); Glucose 96 mg/dL (74-106); Potassium 3.2 mmol/L (3.5-5.1); Sodium Level 142 mmol/L (136-145)
--- NOTE | 2019-10-26 07:18 | PCM.PN.HOSP ---
Patient Problems: Active and Suspected Problems SIRS (systemic inflammatory response syndrome) (Acute) (Acute) Reason for Visit: Acute influenza B infection superimposed with streptococcal pneumonia Subjective: Patient is a 24-year-old lady who is 26 weeks presented with generalized malaise associated with fever shortness of breath and cough Objective: GENERAL: cooperative appears ill looking HEENT: Atraumatic; EYES; Anicteric, Normal Conjunctiva NECK; supple, normal thyroid, RESPIRATORY: Diminished to auscultation CARDIOVASCULAR: Regular S1 S2, tachycardic GI: soft, normoactive bowel sounds, : Gravid uterus EXTREMITIES: No edema, no clubbing, MUSCULOSKELETAL: no muscle waisting NEURO: Awake; no lateralizing signs. SKIN: No Rash PSYCH; Flat affect Vitals/I&O's: Vital Signs Temp Pulse Resp BP Pulse Ox 99.6 F H 98 21 H 94/58 L 98 10/26/19 00:00 10/26/19 05:01 10/26/19 05:01 10/26/19 05:01 10/26/19 05:01 Oxygen Delivery Method Room Air Weight: 71.4 kg Body Mass Index (BMI) 27.8 Intake and Output for Last 24 Hours 10/24/19 10/25/19 10/26/19 23:59 23:59 23:59 Intake Total 3933.33 / 4173.33 2048.72 / 2048.72 Output Total 1999 / 1999 1000 / 1000 Balance 1933.33 / 2173.33 1048.72 / 1048.72 Microbiology Past 72 Hours 10/25/19 15:05 Blood Culture (Wb) - Other Bacteria Detection (PCR) - Preliminary Streptococcus pneumoniae 10/25/19 15:05 Blood Culture (Wb) - Other Blood Culture - Preliminary 10/25/19 13:41 Mucosa - Nasopharyngeal Influenza Types A,B Direct FA (ARA) - Final Influenzae B Laboratory Results 10/25/19 09:15: WBC 19.8 H, RBC 3.82 L, Hgb 11.3 L, Hct 32.9 L, MCV 86.1, MCH 29.6, MCHC 34.3, RDW Std Deviation 41.8, RDW Coeff of [place] 13.4, Plt Count 219, MPV 9.4, Immature Gran % (Auto) 2.300 H, Neut % (Auto) 88.5 H, Lymph % (Auto) 5.3 L, [place] % (Auto) 3.5, Eos % (Auto) 0.2, Baso % (Auto) 0.2, Absolute Neuts (auto) 17.5 H, Absolute Lymphs (auto) 1.05, Nucleated RBC % 0, Differential Comment SCANNED 10/25/19 09:15: Sodium 131 L, Potassium 2.6 L*, Chloride 97 L, Carbon Dioxide 24.0, Anion Gap 10, BUN 3 L, Creatinine 0.52 L, Estim Creat Clear Calc 135.62, Est GFR (MDRD) Af Amer 182, Est GFR (MDRD) Non-Af 150, BUN/Creatinine Ratio 5.7 L, Glucose 106, Calcium 8.1 L, Total Bilirubin 0.90, AST 25, ALT 21, Alkaline Phosphatase 89, Total Protein 7.4, Albumin 2.8 L, Globulin 4.6 H, Albumin/Globulin Ratio 0.6 L 10/25/19 09:42: Fibronectin Negative 10/25/19 09:42: Vag Amniotic Fld Detect Negative 10/25/19 13:15: Urine Color Yellow, Urine Clarity Sl. Cloudy, Urine pH 6.5, Ur Specific [place] 1.005, Urine Protein Negative, Urine Glucose (UA) Normal, Urine Ketones 150 H, Urine Occult Blood 25 H, Urine Nitrite Negative, Urine Bilirubin Negative, Urine Urobilinogen Normal, Ur Leukocyte Esterase 100 H, Urine RBC 0 SEEN, Urine WBC 0-5 SEEN, Ur Squamous Epith Cells 5-10 SEEN, Urine Bacteria 1+, Urine Mucus 0 SEEN 10/25/19 15:05: Sodium 132 L, Potassium 2.4 L*, Chloride 99, Carbon Dioxide 23.0, Anion Gap 10, BUN 2 L, Creatinine 0.53 L, Estim Creat Clear Calc 127.22, Est GFR (MDRD) Af Amer 179, Est GFR (MDRD) Non-Af 148, BUN/Creatinine Ratio 3.8 L, Glucose 119 H, Calcium 8.1 L, Total Bilirubin 1.00, AST 22, ALT 20, Alkaline Phosphatase 84, Total Protein 6.8, Albumin 2.6 L, Globulin 4.2, Albumin/Globulin Ratio 0.6 L 10/25/19 15:05: Total Creatine Kinase 57 10/25/19 15:05: PT 13.2, INR 1.0, APTT 34.8 10/25/19 15:05: Lactic Acid 1.6 10/25/19 15:40: MRSA (PCR) Negative 10/26/19 06:05: WBC 21.2 H, RBC 3.19 L, Hgb 9.2 L, Hct 28.1 L, MCV 88.1, MCH 28.8, MCHC 32.7, RDW Std Deviation 44.6 H, RDW Coeff of [place] 13.8, Plt Count 184, MPV 9.3, Immature Gran % (Auto) 2.300 H, Neut % (Auto) 87.4 H, Lymph % (Auto) 6.4 L, [place] % (Auto) 3.6, Eos % (Auto) 0.2, Baso % (Auto) 0.1, Absolute Neuts (auto) 18.5 H, Absolute Lymphs (auto) 1.36, Nucleated RBC % 0, Differential Comment SCANNED 10/26/19 06:05: Sodium 142, Potassium 3.2 L, Chloride 112 H, Carbon Dioxide 21.0, Anion Gap 9, BUN 2 L, Creatinine 0.40 L, Estim Creat Clear Calc 168.57, Est GFR (MDRD) Af Amer 245, Est GFR (MDRD) Non-Af 203, BUN/Creatinine Ratio 5.0 L, Glucose 96, Calcium 7.4 L, Total Bilirubin 0.80, AST 22, ALT 16, Alkaline Phosphatase 73, Total Protein 6.0 L, Albumin 2.1 L, Globulin 3.9, Albumin/Globulin Ratio 0.5 L Current Medications Acetaminophen (Tylenol) 650 mg PO Q6H PRN PRN PRN Reason: Pain Score 1-10/Temp > 100.7 F Last Admin: 10/25/19 23:05 Dose: 650 mg Documented by: Al Hydroxide/Mg Hydroxide (Mylanta Ii) 30 ml PO Q6H PRN PRN PRN Reason: Gastric Burning Guaifenesin (Robitussin) 10 ml PO Q4H PRN PRN PRN Reason: COUGH Norepinephrine Bitartrate 8 mg (/ Sodium Chloride) 250 mls @ 9.375 mls/hr CONT INF .[id number] [facility]; Protocol Last Titration: 10/26/19 05:01 Dose: 8 mcg/min, 15 mls/hr Documented by: Potassium Chloride/Sodium Chloride () 1,000 mls @ 150 mls/hr IV .Q6H40M [facility] Last Admin: 10/26/19 05:20 Dose: 150 mls/hr Documented by: Vancomycin IV Pharmacy to Dose (1 ea/ Sodium Chloride) 500 mls @ 250 mls/hr IV PRN PRN; Protocol PRN Reason: Rx to Dose Cefepime HCl 2 gm/ Sodium (Chloride) 100 mls @ 200 mls/hr IV Q8 [facility] Last Infusion: 10/26/19 05:50 Dose: Infused Documented by: Vancomycin HCl (Vancomycin) 1,000 mg in 200 mls @ 200 mls/hr IV Q8H [facility] Last Infusion: 10/26/19 01:23 Dose: Infused Documented by: Melatonin (Melatonin) 3 mg PO QHS PRN PRN PRN Reason: INSOMNIA Oseltamivir Phosphate (Tamiflu) 75 mg PO BID [facility] Stop: 10/29/19 22:01 Last Admin: 10/25/19 22:48 Dose: 75 mg Documented by: [facility] Last Admin: 10/25/19 16:40 Dose: 20 meq Documented by: Multivit/Folic Acid/Iron (Prenatabs Fa) [facility] Prochlorperazine Edisylate (Compazine Iv) 10 mg IV Q6H PRN PRN PRN Reason: VOMITING Last Admin: 10/25/19 19:58 Dose: 10 mg Documented by: Promethazine HCl (Phenergan) 12.5 mg IV Q6H PRN PRN PRN Reason: NAUSEA/VOMITING Sodium Chloride () 10 - 40 ml IV UD PRN PRN Reason: SALINE FLUSH Last Admin: 10/25/19 19:58 Dose: 10 ml Documented by: STROKE Vital Signs/Narrative: Vital Signs Pulse Resp BP Pulse Ox 10/26/19 05:01 98 21 H 94/58 L 98 10/26/19 05:00 98 10/26/19 04:45 98 91/57 L 10/26/19 04:30 93 24 H 92/52 L 97 10/26/19 04:15 92 23 H 87/54 L 97 10/26/19 04:00 96 19 H 89/54 L 99 10/26/19 03:45 96 18 88/47 L 98 10/26/19 03:42 97 10/26/19 03:30 99 17 81/45 L 98 Medical Necessity - Tobacco Use Smoking Status: Never smoker Assessment/Plan All Active Problems SIRS (systemic inflammatory response syndrome) (Acute) (Acute) Patient is a 24-year-old lady who is 26 weeks presented with generalized malaise associated with fever shortness of breath and cough 1. Septic shock secondary to influenza B pneumonia complicated by streptococcal pneumonia ?Etiology not clear at this point patient had significant leukocytosis with a left shift. Ordered chest x-ray urinalysis as well as influenza assay if negative will pursue a COVID 19 test. Patient was transferred from the OB unit to the intensive care unit started on aggressive IV fluid resuscitation broad-spectrum antibiotic therapy with consultation placed to Dr. Ball with intensive care -Patient influenza B assay came back positive. Patient isolation for call with test discontinued. Blood cultures also came back positive for strep pneumo. Patient had to be started on Levophed due to low blood pressure. Antibiotics subsequently adjusted with discontinuation of vancomycin and cefepime and initiation of Tamiflu and Rocephin. 2. Suspected viral syndrome - management as above 3. 26 weeks of gestation ?Consult placed to patient [employer]IVE Joseph Maurer 4. Hypokalemia ?Corrected per protocol 5. Hyponatremia -do suspect hypovolemic hyponatremia patient on saline with subsequent monitoring of electrolyte 6. DVT prophylaxis ?Low risk to Inpatient E&M: [id number] [facility] L3
--- NOTE | 2019-10-26 07:42 | NURSING ---
This RN in pt room for complaint of decreased FM. per EFM strip, FHR 125 with moderate variability, 10x10 accelerations and occasional variable noted, absence of late decelerations. pt intermittently sleeping and denies contractions. irregular mild contractions, abdomen palpates soft and non tender, 1.5-5 minutes apart, 50-60 seconds in duration. pt now reporting feeling movement and movement palpated by RN.
[2019-10-26] MEDS: Prenatal Vits Tablet 1 TABLET PO (08:18)
--- NOTE | 2019-10-26 08:35 | NURSING ---
late [id number] Meenu Bacon CNM updated via phone, this RN notified from [facility]AT[facility] in ICU patient now reporting decreased movement. Denies abdominal pain or contractions. Meenu Bacon and Dr Ruiz now requesting an NST to be completed and repeated q day. Order entered for monitoring and Meenu Hunt RN sent to ICU at this time.
--- NOTE | 2019-10-26 08:41 | SEPSIS_ITS ---
Sepsis Note - Physical Exam/Vitals Subjective: I have reassessed the patient's hemodynamic status following IV fluid res uscitation. Objective: Chest X-Ray 10/25/19 12:30 IMPRESSION: Patchy right lower lobe and right suprahilar infiltrates. Electronically Signed: Luca Garcia, at 15:48 EDT , Service support , Temp Pulse Resp BP Pulse Ox 99.6 F H 98 21 H 94/58 L 98 10/26/19 00:00 10/26/19 05:01 10/26/19 05:01 10/26/19 05:01 10/26/19 05:01 10/26/19 10/26/19 10/25/19 06:05 06:05 15:40 WBC 21.2 H RBC 3.19 L Hgb 9.2 L Hct 28.1 L MCV 88.1 MCH 28.8 MCHC 32.7 RDW Std Deviation 44.6 H RDW Coeff of [place] 13.8 Plt Count 184 MPV 9.3 Immature Gran % (Auto) 2.300 H Neut % (Auto) 87.4 H Lymph % (Auto) 6.4 L [place] % (Auto) 3.6 Eos % (Auto) 0.2 Baso % (Auto) 0.1 Absolute Neuts (auto) 18.5 H Absolute Lymphs (auto) 1.36 Nucleated RBC % 0 Differential Comment SCANNED PT INR APTT Sodium 142 Potassium 3.2 L Chloride 112 H Carbon Dioxide 21.0 Anion Gap 9 BUN 2 L Creatinine 0.40 L Estim Creat Clear Calc 168.57 Est GFR (MDRD) Af Amer 245 Est GFR (MDRD) Non-Af 203 BUN/Creatinine Ratio 5.0 L Glucose 96 Lactic Acid Calcium 7.4 L Total Bilirubin 0.80 AST 22 ALT 16 Alkaline Phosphatase 73 Total Creatine Kinase Total Protein 6.0 L Albumin 2.1 L Globulin 3.9 Albumin/Globulin Ratio 0.5 L Urine Color Urine Clarity Urine pH Ur Specific [place] Urine Protein Urine Glucose (UA) Urine Ketones Urine Occult Blood Urine Nitrite Urine Bilirubin Urine Urobilinogen Ur Leukocyte Esterase Urine RBC Urine WBC Ur Squamous Epith Cells Urine Bacteria Urine Mucus Vag Amniotic Fld Detect MRSA (PCR) Negative Fibronectin 10/25/19 10/25/19 10/25/19 15:05 15:05 15:05 WBC RBC Hgb Hct MCV MCH MCHC RDW Std Deviation RDW Coeff of [place] Plt Count MPV Immature Gran % (Auto) Neut % (Auto) Lymph % (Auto) [place] % (Auto) Eos % (Auto) Baso % (Auto) Absolute Neuts (auto) Absolute Lymphs (auto) Nucleated RBC % Differential Comment PT 13.2 INR 1.0 APTT 34.8 Sodium Potassium Chloride Carbon Dioxide Anion Gap BUN Creatinine Estim Creat Clear Calc Est GFR (MDRD) Af Amer Est GFR (MDRD) Non-Af BUN/Creatinine Ratio Glucose Lactic Acid 1.6 Calcium Total Bilirubin AST ALT Alkaline Phosphatase Total Creatine Kinase 57 Total Protein Albumin Globulin Albumin/Globulin Ratio Urine Color Urine Clarity Urine pH Ur Specific [place] Urine Protein Urine Glucose (UA) Urine Ketones Urine Occult Blood Urine Nitrite Urine Bilirubin Urine Urobilinogen Ur Leukocyte Esterase Urine RBC Urine WBC Ur Squamous Epith Cells Urine Bacteria Urine Mucus Vag Amniotic Fld Detect MRSA (PCR) Fibronectin 10/25/19 10/25/19 10/25/19 15:05 13:15 09:42 WBC RBC Hgb Hct MCV MCH MCHC RDW Std Deviation RDW Coeff of [place] Plt Count MPV Immature Gran % (Auto) Neut % (Auto) Lymph % (Auto) [place] % (Auto) Eos % (Auto) Baso % (Auto) Absolute Neuts (auto) Absolute Lymphs (auto) Nucleated RBC % Differential Comment PT INR APTT Sodium 132 L Potassium 2.4 L* Chloride 99 Carbon Dioxide 23.0 Anion Gap 10 BUN 2 L Creatinine 0.53 L Estim Creat Clear Calc 127.22 Est GFR (MDRD) Af Amer 179 Est GFR (MDRD) Non-Af 148 BUN/Creatinine Ratio 3.8 L Glucose 119 H Lactic Acid Calcium 8.1 L Total Bilirubin 1.00 AST 22 ALT 20 Alkaline Phosphatase 84 Total Creatine Kinase Total Protein 6.8 Albumin 2.6 L Globulin 4.2 Albumin/Globulin Ratio 0.6 L Urine Color Yellow Urine Clarity Sl. Cloudy Urine pH 6.5 Ur Specific [place] 1.005 Urine Protein Negative Urine Glucose (UA) Normal Urine Ketones 150 H Urine Occult Blood 25 H Urine Nitrite Negative Urine Bilirubin Negative Urine Urobilinogen Normal Ur Leukocyte Esterase 100 H Urine RBC 0 SEEN Urine WBC 0-5 SEEN Ur Squamous Epith Cells 5-10 SEEN Urine Bacteria 1+ Urine Mucus 0 SEEN Vag Amniotic Fld Detect Negative MRSA (PCR) Fibronectin 10/25/19 10/25/19 10/25/19 09:42 09:15 09:15 WBC 19.8 H RBC 3.82 L Hgb 11.3 L Hct 32.9 L MCV 86.1 MCH 29.6 MCHC 34.3 RDW Std Deviation 41.8 RDW Coeff of [place] 13.4 Plt Count 219 MPV 9.4 Immature Gran % (Auto) 2.300 H Neut % (Auto) 88.5 H Lymph % (Auto) 5.3 L [place] % (Auto) 3.5 Eos % (Auto) 0.2 Baso % (Auto) 0.2 Absolute Neuts (auto) 17.5 H Absolute Lymphs (auto) 1.05 Nucleated RBC % 0 Differential Comment SCANNED PT INR APTT Sodium 131 L Potassium 2.6 L* Chloride 97 L Carbon Dioxide 24.0 Anion Gap 10 BUN 3 L Creatinine 0.52 L Estim Creat Clear Calc 135.62 Est GFR (MDRD) Af Amer 182 Est GFR (MDRD) Non-Af 150 BUN/Creatinine Ratio 5.7 L Glucose 106 Lactic Acid Calcium 8.1 L Total Bilirubin 0.90 AST 25 ALT 21 Alkaline Phosphatase 89 Total Creatine Kinase Total Protein 7.4 Albumin 2.8 L Globulin 4.6 H Albumin/Globulin Ratio 0.6 L Urine Color Urine Clarity Urine pH Ur Specific [place] Urine Protein Urine Glucose (UA) Urine Ketones Urine Occult Blood Urine Nitrite Urine Bilirubin Urine Urobilinogen Ur Leukocyte Esterase Urine RBC Urine WBC Ur Squamous Epith Cells Urine Bacteria Urine Mucus Vag Amniotic Fld Detect MRSA (PCR) Fibronectin Negative General: Alert Lungs: Clear to auscultation, Normal air movement Cardiovascular: Regular rate, Regular Rhythm, No murmurs Capillary Refill: <3 seconds Peripheral Pulses: Normal Skin Color: [place] - Assessment/Plan Continue current supportive measures as outlined in ICU note.
--- NOTE | 2019-10-26 09:20 | NURSING ---
Meenu Naqvi CNP present in pt room. verbal consent for central line from pt given. 0915 HR 95 R 19 BP 100/62 (73) SpO2 100 RA 0920 HR 97 R 19 BP 93/55 (66) SpO2 100 RA begin insertion 0925 HR 100 R 18 BP 91/58 (66) SpO2 99 0930 HR 105 R 21 BP 101/69 (75) SpO2 99 RA wire out, good blood return 7FR 16cm RIJ TL placed.
--- NOTE | 2019-10-26 09:22 | PCM.PN.BLA ---
Progress Note Patient in ICU. Reported this morning that she has felt baby but decreased movement. RN to unit to complete NST. FHT- 125 bpm Moderate variability Occasional variables No decelerations TOCO- Irritability A/P Continue daily NSTs while in IUC Dr. Ruiz/Dr. Croft updated and agree with plan of care.
--- NOTE | 2019-10-26 09:35 | RAD_ITS ---
STUDY: X-RAY CHEST REASON FOR EXAM: Female, 24 years old. RIGHT IJ TL PLACEMENT; -- R/O PNEUMONIA TECHNIQUE: Single AP portable view of the chest. COMPARISON: Comparison is made with prior study dated October 25, 2019. FINDINGS: A right-sided internal jugular venous catheter has been placed with the tip at the junction of the superior vena cava and right atrium. EKG electrodes are seen. Since prior study, there has been progressive infiltration in the right lower lobe. There is no demonstrated pleural abnormality. Normal size heart. Normal mediastinum and joel. Normal visualized pulmonary arteries. Normal visualized aortic arch and descending thoracic aorta. Normal visualized thoracic spine. Normal visualized ribs, clavicles, and shoulders. There is no demonstrated abnormality of the visualized soft tissue structures of the upper abdomen. RAD/CXR for Line Placement IMPRESSION: The tip of the right internal jugular venous catheter is at the junction of the superior vena cava and right atrium. Since prior study, there has been progression of the right lower lobe infiltrate. Electronically Signed: Luca Garcia, at 10:30 EDT , Service support ,
--- NOTE | 2019-10-26 09:50 | PCM.OPRPT ---
Report of Operation Date of Procedure: 10/26/19 Surgery/Procedure Performed:: Triple-lumen catheter insertion Description of Surgical Findings:: Central line placement procedure note Indication: IV access/hemodynamic instability/vasoactive medications Procedure: A time-out was completed to verify correct patient, indication, medication allergies, procedure, coagulation studies, informed consent signed, and equipment needed. The patient was placed in the supine position for a central line placement to the r IJ vein. The patients rt neck was prepped using chlorhexidine and a full body sterile drape was applied. 1% lidocaine was used to anesthetize the surrounding skin. A 7fr 16 cm blue guard triple lumen catheter introduced into the internal jugular vein using the modified Seldinger technique with the assistance of ultrasound. The catheter was threaded smoothly over the guidewire, the guidewire was removed easily, nonpulsatile blood returned. All ports were aspirated of air and flushed with sterile saline. The catheter was sutured in place and covered with an occlusive dressing impregnated with chlorhexidine. Post-procedure: The patient tolerated the procedure well. Vital signs remained stable. EBL 3 cc. No complications. Chest X Ray ordered to confirm tip placement and the absence of pneumothorax. Procedures: [id number] Insert Non-tunnel CV Cath
--- NOTE | 2019-10-26 10:47 | CASEMGMT ---
RN BONI called patient in room for initial transition planning/care coordination assessment. RN BONI introduced self and role at [facility]. Patient alert and oriented. Patient willing to participate in assessment and is able to answer all questions appropriately. Care providers, pharmacy, and demographics verified. Patient wishes to discharge home, denies need for home health at this time. Patient states she has no further needs or concerns at this time. CM to follow for discharge planning needs that may arise. PCP: No PCP, FLORINA PLATA to provide patient with list of PCP in area. Specialists: None Preferred [facility]acy: [facility] Insurance: None, [employer] Prescription Benefit: none Living Will/HPOA: none LNOK: Living Arrangements: Patient lives with and son in 2 story home with bed and bath on first floor. Patient states she is independent at home and has family that can assist. 4-5 steps with railing to enter the home. Transportation: [employer] DME/HHC: Patient denies DME or previous HHC. Disposition Plan: Patient to discharge home with family support and follow-up plans in place. Nathalie RAYMOND, RN, CM
[2019-10-26] MEDS: Ceftriaxone 1 GM/50 ML BAG IV ×2 (11:48→21:42)
[2019-10-26] MEDS: Oseltamivir Phosphate 75 MG Capsule PO ×2 (11:50→21:43)
--- NOTE | 2019-10-26 14:28 | CON.PCM_ITS ---
Reason for Consult: septic shock Consulted by: Dr. Desai History of Present Illness: The patient is a 24 year old F who is 26 weeks , no flu shot, some recent illness in the community. Developed fever, chills, aches on 10/20, quickly progressed. Had new dry cough and dyspnea. Came to ED last night. Had some n/v. Started on tamiflu and ceftriaxone after initial vanc/cefepime. Now on pressors, feeling a little better today. Full ROS performed and neg except as noted above. - Medical History Surgical History: reviewed Allergies/Adverse Reactions: Allergies No Known Allergies Allergy (Verified 10/25/19 10:11) Home Medications: Ambulatory Orders Medication Instructions Recorded Vits [Prenatabs FA] 1 tab PO DAILY 10/25/19 - Social History Tobacco Use: non-smoker Vital Signs Temp Pulse Resp BP Pulse Ox 98.0 F 107 H 20 H 97/53 L 100 10/26/19 08:00 10/26/19 11:00 10/26/19 11:00 10/26/19 11:00 10/26/19 11:00 Oxygen Delivery Method Room Air Weight: 71.4 kg Body Mass Index (BMI) 27.8 Microbiology Past 72 Hours 10/25/19 13:15 Streptococcus pneumoniae Antigen (M - Final Urine, Clean Catch 10/25/19 13:15 Legionella Antigen - Final Urine, Clean Catch 10/25/19 13:15 Urine Culture - Preliminary Urine, Clean Catch 10/25/19 15:05 Bacteria Detection (PCR) - Final Blood Culture (Wb) - Other Streptococcus pneumoniae Blood Culture - Preliminary Streptococcus pneumoniae 10/25/19 13:41 Influenza Types A,B Direct FA (ARA) - Final Mucosa - Nasopharyngeal Influenzae B Laboratory Tests Past 24 Hrs 10/25/19 10/25/19 10/25/19 15:05 15:05 15:05 WBC RBC Hgb Hct MCV MCH MCHC RDW Std Deviation RDW Coeff of [place] Plt Count MPV Immature Gran % (Auto) Neut % (Auto) Lymph % (Auto) [place] % (Auto) Eos % (Auto) Baso % (Auto) Absolute Neuts (auto) Absolute Lymphs (auto) Nucleated RBC % Differential Comment PT 13.2 INR 1.0 APTT 34.8 Sodium 132 L Potassium 2.4 L* Chloride 99 Carbon Dioxide 23.0 Anion Gap 10 BUN 2 L Creatinine 0.53 L Estim Creat Clear Calc 127.22 Est GFR (MDRD) Af Amer 179 Est GFR (MDRD) Non-Af 148 BUN/Creatinine Ratio 3.8 L Glucose 119 H Lactic Acid Calcium 8.1 L Total Bilirubin 1.00 AST 22 ALT 20 Alkaline Phosphatase 84 Total Creatine Kinase 57 Total Protein 6.8 Albumin 2.6 L Globulin 4.2 Albumin/Globulin Ratio 0.6 L MRSA (PCR) 10/25/19 10/25/19 10/26/19 15:05 15:40 06:05 WBC 21.2 H RBC 3.19 L Hgb 9.2 L Hct 28.1 L MCV 88.1 MCH 28.8 MCHC 32.7 RDW Std Deviation 44.6 H RDW Coeff of [place] 13.8 Plt Count 184 MPV 9.3 Immature Gran % (Auto) 2.300 H Neut % (Auto) 87.4 H Lymph % (Auto) 6.4 L [place] % (Auto) 3.6 Eos % (Auto) 0.2 Baso % (Auto) 0.1 Absolute Neuts (auto) 18.5 H Absolute Lymphs (auto) 1.36 Nucleated RBC % 0 Differential Comment SCANNED PT INR APTT Sodium Potassium Chloride Carbon Dioxide Anion Gap BUN Creatinine Estim Creat Clear Calc Est GFR (MDRD) Af Amer Est GFR (MDRD) Non-Af BUN/Creatinine Ratio Glucose Lactic Acid 1.6 Calcium Total Bilirubin AST ALT Alkaline Phosphatase Total Creatine Kinase Total Protein Albumin Globulin Albumin/Globulin Ratio MRSA (PCR) Negative 10/26/19 06:05 WBC RBC Hgb Hct MCV MCH MCHC RDW Std Deviation RDW Coeff of [place] Plt Count MPV Immature Gran % (Auto) Neut % (Auto) Lymph % (Auto) [place] % (Auto) Eos % (Auto) Baso % (Auto) Absolute Neuts (auto) Absolute Lymphs (auto) Nucleated RBC % Differential Comment PT INR APTT Sodium 142 Potassium 3.2 L Chloride 112 H Carbon Dioxide 21.0 Anion Gap 9 BUN 2 L Creatinine 0.40 L Estim Creat Clear Calc 168.57 Est GFR (MDRD) Af Amer 245 Est GFR (MDRD) Non-Af 203 BUN/Creatinine Ratio 5.0 L Glucose 96 Lactic Acid Calcium 7.4 L Total Bilirubin 0.80 AST 22 ALT 16 Alkaline Phosphatase 73 Total Creatine Kinase Total Protein 6.0 L Albumin 2.1 L Globulin 3.9 Albumin/Globulin Ratio 0.5 L MRSA (PCR) - Other Studies Radiology: [] reviewed Other Studies: [] Route of nutrition/ use of supplements: [] Nutritional Intake: [] IV Site: [] [place] Catheter: [] - Physical Exam General: Alert, Oriented x3, Cooperative, No apparent distress HEENT: Atraumatic, PERRLA, EOMI Neck: Supple, No Nodes Lungs: Clear to auscultation, Normal air movement, Diminished Cardiovascular: Tachycardic Abdomen: Soft, Non Tender, Gravid Extremities: No edema Skin: No rashes - Assessment/Plan Antibiotics: [] Assessment/Plan: [] Active and Suspected Problems SIRS (systemic inflammatory response syndrome) (Acute) (Acute) septic shock with flu B, s.pneumo (+) bcx, and 26 weeks . On tamiflu and ceftriaxone, feeling a little better. Will follow, thank you, d/w nursing and Dr. Ball.
[2019-10-27] VITALS (50 sets, daily range): BP systolic 90–123; BP diastolic 50–89; PULSE 85–134; RESP 16–26; TEMP 36.5–36.9; O2SAT 98–100
[2019-10-27] MEDS: proCHLORPERazine 10 MG/2 ML Vial IV ×2 (01:04→14:59)
[2019-10-27] MEDS: BENZOCAINE/MENTHOL 1 LOZENGE MUCOUS MEM (01:52)
[2019-10-27] MEDS: Benzonatate 100 MG Capsule PO (01:52)
[2019-10-27 05:09] LABS: Absolute Lymphocyte Count 1.55 X10^3/uL (0.83-4.51); Absolute Neutrophil Count 13.8 X10^3/uL (2.0-7.7); Basophil# 0.04 X10^3/uL; Basophil% 0.2 % (0-1); Eosinophil# 0.02 X10^3/uL; Eosinophils% 0.1 % (0-5); Hematocrit 29.6 % (37-47); Lymphocyte # 1.55 X10^3/ul (4.0); Lymphocyte % 9.5 % (19-41); Mean Corp Hgb Conc 33.8 g/dL (32-36); Mean Corpuscular Hgb 29.9 pg (27.0-32.0); Mean Corpuscular Volume 88.6 fL (81-99); Mean Platelet Vol. 8.9 fl (6.2-12.0); Monocyte# 0.64 X10^3/uL; Monocyte% 3.9 % (0-10); NRBC Flagged by Analyzer 0 % (0-5); Neutrophil # 13.78 X10^3/uL (2.7-7.7); Neutrophil % 84.3 % (47-70); Platelet Count 211 K/mm3 (150-450); RBC Distribution Width CV 13.5 % (11.6-14.6); RBC Distribution Width SD 43.2 fl (35.1-43.9); Red Blood Count 3.34 M/mm3 (4.2-5.4); White Blood Count 16.4 K/mm3 (4.4-11.0)
[2019-10-27 05:23] LABS: ALB/GLOB Ratio 0.5 RATIO (0.9-2.4); AST(SGOT) 18 U/L (15-37); Alanine Aminotransfer ALT/SGPT 16 U/L (13-56); Albumin, Serum 2.1 g/dL (3.2-5.0); Alkaline Phosphatase 86 U/L (45-117); Anion Gap 10 (5-15); BUN 1 mg/dL (7-18); BUN/Creat Ratio 4.2 RATIO (10-20); Calcium,Total 7.3 mg/dL (8.5-10.1); Chloride 107 mmol/L (98-107); Creatinine, Serum 0.24 mg/dL (0.55-1.02); EST Glomerular Filtration Rate 369 mL/min (>60); Est Glom Filt Rate - Afr Amer 446 mL/min (>60); Estimated Creatinine Clearance 280.94 ml/min; Globulin 4.1 g/dL (2.2-4.2); Glucose 94 mg/dL (74-106); Protein, Total 6.2 g/dL (6.4-8.2); Sodium Level 138 mmol/L (136-145)
--- NOTE | 2019-10-27 06:50 | PCM.PN.INT ---
Subjective: The patient was seen and examined at the bedside this morning. Events from the last 24 hours have been reviewed. The patient is currently afebrile and maintaining appropriate oxygen saturations on room air. She remains on Levophed at 6 mcg/min to maintain hemodynamic stability. The patient reports continued presence of a cough with intermittent production of sputum. Objective: The patient's most recent lab work, culture data and imaging studies have all been personally reviewed. Rapid influenza screen was positive for influenza B. Blood culture dated October 24 was positive for Streptococcus pneumoniae. General: Alert, Oriented x3, Cooperative, No apparent distress HEENT: Atraumatic, PERRLA, Normocephalic Oral: No Gingival or Mucosal Lesions/ Ulcerations Neck: Supple, No Nodes, Trachea Midline, - - Right IJ central venous catheter in place Lungs: Normal air movement, No rhonchi, No wheeze, No rales Cardiovascular: Regular rate, Regular Rhythm, Normal S1, Normal S2 Abdomen: Bowel Sounds Present, Soft, Non Tender Extremities: No clubbing, No cyanosis, No edema Skin: No breakdown Musculoskeletal: No Tenderness to Palpation of Joints or Extremities Lymphatic: No Cervical, Supraclavicular, or Inguinal Adenopathy Neurological: Cranial nerves II-XII grossly intact, Neuro grossly intact Psych/Mental Status: Normal Affect, Appropriate Vital Signs Temp Pulse Resp BP Pulse Ox 98.4 F 102 H 16 99/64 99 10/27/19 04:00 10/27/19 06:00 10/27/19 06:00 10/27/19 06:45 10/27/19 06:00 Oxygen Delivery Method Room Air Weight: 156 lb 1.396 oz Body Mass Index (BMI) 27.8 Intake and Output for Last 24 Hours 10/25/19 10/26/19 10/27/19 23:59 23:59 23:59 Intake Total 3933.33 / 4173.33 6135.34 / 6140.97 2509.97 / 2509.97 Output Total 1999 / 1999 4000 / 4000 1050 / 1050 Balance 1933.33 / 2173.33 2135.34 / 2140.97 1459.97 / 1459.97 Labs (Last 48 Hours) 10/25/19 10/25/19 10/25/19 09:15 09:15 09:42 WBC 19.8 H RBC 3.82 L Hgb 11.3 L Hct 32.9 L MCV 86.1 MCH 29.6 MCHC 34.3 RDW Std Deviation 41.8 RDW Coeff of [place] 13.4 Plt Count 219 MPV 9.4 Immature Gran % (Auto) 2.300 H Neut % (Auto) 88.5 H Lymph % (Auto) 5.3 L [place] % (Auto) 3.5 Eos % (Auto) 0.2 Baso % (Auto) 0.2 Absolute Neuts (auto) 17.5 H Absolute Lymphs (auto) 1.05 Nucleated RBC % 0 Differential Comment SCANNED PT INR APTT Sodium 131 L Potassium 2.6 L* Chloride 97 L Carbon Dioxide 24.0 Anion Gap 10 BUN 3 L Creatinine 0.52 L Estim Creat Clear Calc 135.62 Est GFR (MDRD) Af Amer 182 Est GFR (MDRD) Non-Af 150 BUN/Creatinine Ratio 5.7 L Glucose 106 Lactic Acid Calcium 8.1 L Total Bilirubin 0.90 AST 25 ALT 21 Alkaline Phosphatase 89 Total Creatine Kinase Total Protein 7.4 Albumin 2.8 L Globulin 4.6 H Albumin/Globulin Ratio 0.6 L Urine Color Urine Clarity Urine pH Ur Specific [place] Urine Protein Urine Glucose (UA) Urine Ketones Urine Occult Blood Urine Nitrite Urine Bilirubin Urine Urobilinogen Ur Leukocyte Esterase Urine RBC Urine WBC Ur Squamous Epith Cells Urine Bacteria Urine Mucus Vag Amniotic Fld Detect MRSA (PCR) Fibronectin Negative 10/25/19 10/25/19 10/25/19 09:42 13:15 15:05 WBC RBC Hgb Hct MCV MCH MCHC RDW Std Deviation RDW Coeff of [place] Plt Count MPV Immature Gran % (Auto) Neut % (Auto) Lymph % (Auto) [place] % (Auto) Eos % (Auto) Baso % (Auto) Absolute Neuts (auto) Absolute Lymphs (auto) Nucleated RBC % Differential Comment PT INR APTT Sodium 132 L Potassium 2.4 L* Chloride 99 Carbon Dioxide 23.0 Anion Gap 10 BUN 2 L Creatinine 0.53 L Estim Creat Clear Calc 127.22 Est GFR (MDRD) Af Amer 179 Est GFR (MDRD) Non-Af 148 BUN/Creatinine Ratio 3.8 L Glucose 119 H Lactic Acid Calcium 8.1 L Total Bilirubin 1.00 AST 22 ALT 20 Alkaline Phosphatase 84 Total Creatine Kinase Total Protein 6.8 Albumin 2.6 L Globulin 4.2 Albumin/Globulin Ratio 0.6 L Urine Color Yellow Urine Clarity Sl. Cloudy Urine pH 6.5 Ur Specific [place] 1.005 Urine Protein Negative Urine Glucose (UA) Normal Urine Ketones 150 H Urine Occult Blood 25 H Urine Nitrite Negative Urine Bilirubin Negative Urine Urobilinogen Normal Ur Leukocyte Esterase 100 H Urine RBC 0 SEEN Urine WBC 0-5 SEEN Ur Squamous Epith Cells 5-10 SEEN Urine Bacteria 1+ Urine Mucus 0 SEEN Vag Amniotic Fld Detect Negative MRSA (PCR) Fibronectin 10/25/19 10/25/19 10/25/19 15:05 15:05 15:05 WBC RBC Hgb Hct MCV MCH MCHC RDW Std Deviation RDW Coeff of [place] Plt Count MPV Immature Gran % (Auto) Neut % (Auto) Lymph % (Auto) [place] % (Auto) Eos % (Auto) Baso % (Auto) Absolute Neuts (auto) Absolute Lymphs (auto) Nucleated RBC % Differential Comment PT 13.2 INR 1.0 APTT 34.8 Sodium Potassium Chloride Carbon Dioxide Anion Gap BUN Creatinine Estim Creat Clear Calc Est GFR (MDRD) Af Amer Est GFR (MDRD) Non-Af BUN/Creatinine Ratio Glucose Lactic Acid 1.6 Calcium Total Bilirubin AST ALT Alkaline Phosphatase Total Creatine Kinase 57 Total Protein Albumin Globulin Albumin/Globulin Ratio Urine Color Urine Clarity Urine pH Ur Specific [place] Urine Protein Urine Glucose (UA) Urine Ketones Urine Occult Blood Urine Nitrite Urine Bilirubin Urine Urobilinogen Ur Leukocyte Esterase Urine RBC Urine WBC Ur Squamous Epith Cells Urine Bacteria Urine Mucus Vag Amniotic Fld Detect MRSA (PCR) Fibronectin 10/25/19 10/26/19 10/26/19 15:40 06:05 06:05 WBC 21.2 H RBC 3.19 L Hgb 9.2 L Hct 28.1 L MCV 88.1 MCH 28.8 MCHC 32.7 RDW Std Deviation 44.6 H RDW Coeff of [place] 13.8 Plt Count 184 MPV 9.3 Immature Gran % (Auto) 2.300 H Neut % (Auto) 87.4 H Lymph % (Auto) 6.4 L [place] % (Auto) 3.6 Eos % (Auto) 0.2 Baso % (Auto) 0.1 Absolute Neuts (auto) 18.5 H Absolute Lymphs (auto) 1.36 Nucleated RBC % 0 Differential Comment SCANNED PT INR APTT Sodium 142 Potassium 3.2 L Chloride 112 H Carbon Dioxide 21.0 Anion Gap 9 BUN 2 L Creatinine 0.40 L Estim Creat Clear Calc 168.57 Est GFR (MDRD) Af Amer 245 Est GFR (MDRD) Non-Af 203 BUN/Creatinine Ratio 5.0 L Glucose 96 Lactic Acid Calcium 7.4 L Total Bilirubin 0.80 AST 22 ALT 16 Alkaline Phosphatase 73 Total Creatine Kinase Total Protein 6.0 L Albumin 2.1 L Globulin 3.9 Albumin/Globulin Ratio 0.5 L Urine Color Urine Clarity Urine pH Ur Specific [place] Urine Protein Urine Glucose (UA) Urine Ketones Urine Occult Blood Urine Nitrite Urine Bilirubin Urine Urobilinogen Ur Leukocyte Esterase Urine RBC Urine WBC Ur Squamous Epith Cells Urine Bacteria Urine Mucus Vag Amniotic Fld Detect MRSA (PCR) Negative Fibronectin 10/27/19 10/27/19 04:45 04:45 WBC 16.4 H RBC 3.34 L Hgb 10.0 L Hct 29.6 L MCV 88.6 MCH 29.9 MCHC 33.8 RDW Std Deviation 43.2 RDW Coeff of [place] 13.5 Plt Count 211 MPV 8.9 Immature Gran % (Auto) 2.000 H Neut % (Auto) 84.3 H Lymph % (Auto) 9.5 L [place] % (Auto) 3.9 Eos % (Auto) 0.1 Baso % (Auto) 0.2 Absolute Neuts (auto) 13.8 H Absolute Lymphs (auto) 1.55 Nucleated RBC % 0 Differential Comment PT INR APTT Sodium 138 Potassium 3.0 L Chloride 107 Carbon Dioxide 21.0 Anion Gap 10 BUN 1 L Creatinine 0.24 L Estim Creat Clear Calc 280.94 Est GFR (MDRD) Af Amer 446 Est GFR (MDRD) Non-Af 369 BUN/Creatinine Ratio 4.2 L Glucose 94 Lactic Acid Calcium 7.3 L Total Bilirubin 0.50 AST 18 ALT 16 Alkaline Phosphatase 86 Total Creatine Kinase Total Protein 6.2 L Albumin 2.1 L Globulin 4.1 Albumin/Globulin Ratio 0.5 L Urine Color Urine Clarity Urine pH Ur Specific [place] Urine Protein Urine Glucose (UA) Urine Ketones Urine Occult Blood Urine Nitrite Urine Bilirubin Urine Urobilinogen Ur Leukocyte Esterase Urine RBC Urine WBC Ur Squamous Epith Cells Urine Bacteria Urine Mucus Vag Amniotic Fld Detect MRSA (PCR) Fibronectin Microbiology 10/25/19 13:15 Urine, Clean Catch Streptococcus pneumoniae Antigen (M - Final 10/25/19 13:15 Urine, Clean Catch Legionella Antigen - Final 10/25/19 13:15 Urine, Clean Catch Urine Culture - Preliminary 10/25/19 15:05 Blood Culture (Wb) - Other Bacteria Detection (PCR) - Final Streptococcus pneumoniae 10/25/19 15:05 Blood Culture (Wb) - Other Blood Culture - Preliminary Streptococcus pneumoniae 10/25/19 13:41 Mucosa - Nasopharyngeal Influenza Types A,B Direct FA (ARA) - Final Influenzae B Clinical Impression(s) from Imaging Studies Chest X-Ray 10/25/19 12:30 IMPRESSION: Patchy right lower lobe and right suprahilar infiltrates. Electronically Signed: Luca Radha, at 15:48 EDT , Service support , Chest X-Ray 10/26/19 09:35 IMPRESSION: The tip of the right internal jugular venous catheter is at the junction of the superior vena cava and right atrium. Since prior study, there has been progression of the right lower lobe infiltrate. Electronically Signed: Luca Garcia, at 10:30 EDT , Service support , Medical Necessity - Tobacco Use Smoking Status: Never smoker Assessment/Plan All Active Problems SIRS (systemic inflammatory response syndrome) (Acute) (Acute) RECOMMENDATIONS: 1. Continue Levophed and wean to maintain a mean arterial pressure at or above 65 mmHg. 2. Continue antibiotics and Tamiflu per infectious disease recommendations. 3. Additional potassium repletion. Check magnesium level as well. 4. Encourage incentive spirometer use while in bed. IMPRESSIONS: 1. Septic shock secondary to influenza B infection coupled with streptococcal pneumonia/bacteremia The patient has been adequately volume resuscitated and remains on vasopressor support to maintain hemodynamic stability. Continue Levophed to maintain a mean arterial pressure at or above 65 mmHg. Agree with continuing Tamiflu x 5 days. Continue ceftriaxone as ordered. Additional recommendations per ID. 2. Hypokalemia Electrolyte repletion as ordered. Plan to check magnesium level as well. Recheck levels tomorrow morning. 3. 26 weeks Continue monitoring and supportive measures per OB recommendations. TIME: 36 minutes of critical care time, independent of procedures, was spent addressing the patient's septic shock secondary to influenza B infection and pneumococcal pneumonia, hypokalemia, current status, review of all data and collaboration with the care team. [id number]) [phone]: [id number] Critical care first hour
--- NOTE | 2019-10-27 07:11 | PCM.PN.HOSP ---
Patient Problems: Active and Suspected Problems SIRS (systemic inflammatory response syndrome) (Acute) (Acute) Reason for Visit: Septic shock Subjective: Patient seen still appears ill looking remains on Levophed. Potassium 3.0 this a.m. Objective: GENERAL: cooperative appears ill looking HEENT: Atraumatic; EYES; Anicteric, Normal Conjunctiva NECK; supple, normal thyroid, RESPIRATORY: Diminished to auscultation CARDIOVASCULAR: Regular S1 S2, tachycardic GI: soft, normoactive bowel sounds, : Gravid uterus EXTREMITIES: No edema, no clubbing, MUSCULOSKELETAL: no muscle waisting NEURO: Awake; no lateralizing signs. SKIN: No Rash PSYCH; Flat affect Vitals/I&O's: Vital Signs Temp Pulse Resp BP Pulse Ox 98.4 F 102 H 16 99/64 99 10/27/19 04:00 10/27/19 06:00 10/27/19 06:00 10/27/19 06:45 10/27/19 06:00 Oxygen Delivery Method Room Air Weight: 70.8 kg Body Mass Index (BMI) 27.8 Intake and Output for Last 24 Hours 10/25/19 10/26/19 10/27/19 23:59 23:59 23:59 Intake Total 3933.33 / 4173.33 6602.84 / 6608.47 2044.97 / 2044.97 Output Total 1999 / 1999 4000 / 4000 1050 / 1050 Balance 1933.33 / 2173.33 2602.84 / 2608.47 994.97 / 994.97 Microbiology Past 72 Hours 10/25/19 13:15 Urine, Clean Catch Streptococcus pneumoniae Antigen (M - Final 10/25/19 13:15 Urine, Clean Catch Legionella Antigen - Final 10/25/19 13:15 Urine, Clean Catch Urine Culture - Preliminary 10/25/19 15:05 Blood Culture (Wb) - Other Bacteria Detection (PCR) - Final Streptococcus pneumoniae 10/25/19 15:05 Blood Culture (Wb) - Other Blood Culture - Preliminary Streptococcus pneumoniae 10/25/19 13:41 Mucosa - Nasopharyngeal Influenza Types A,B Direct FA (ARA) - Final Influenzae B Laboratory Results 10/27/19 04:45: WBC 16.4 H, RBC 3.34 L, Hgb 10.0 L, Hct 29.6 L, MCV 88.6, MCH 29.9, MCHC 33.8, RDW Std Deviation 43.2, RDW Coeff of [place] 13.5, Plt Count 211, MPV 8.9, Immature Gran % (Auto) 2.000 H, Neut % (Auto) 84.3 H, Lymph % (Auto) 9.5 L, [place] % (Auto) 3.9, Eos % (Auto) 0.1, Baso % (Auto) 0.2, Absolute Neuts (auto) 13.8 H, Absolute Lymphs (auto) 1.55, Nucleated RBC % 0 10/27/19 04:45: Sodium 138, Potassium 3.0 L, Chloride 107, Carbon Dioxide 21.0, Anion Gap 10, BUN 1 L, Creatinine 0.24 L, Estim Creat Clear Calc 280.94, Est GFR (MDRD) Af Amer 446, Est GFR (MDRD) Non-Af 369, BUN/Creatinine Ratio 4.2 L, Glucose 94, Calcium 7.3 L, Total Bilirubin 0.50, AST 18, ALT 16, Alkaline Phosphatase 86, Total Protein 6.2 L, Albumin 2.1 L, Globulin 4.1, Albumin/Globulin Ratio 0.5 L Current Medications Acetaminophen (Tylenol) 650 mg PO Q6H PRN PRN PRN Reason: Pain Score 1-10/Temp > 100.7 F Last Admin: 10/25/19 23:05 Dose: 650 mg Documented by: Al Hydroxide/Mg Hydroxide (Mylanta Ii) 30 ml PO Q6H PRN PRN PRN Reason: Gastric Burning Benzonatate (Tessalon Perle) 100 mg PO TID PRN PRN PRN Reason: COUGH Last Admin: 10/27/19 01:52 Dose: 100 mg Documented by: Guaifenesin (Robitussin) 10 ml PO Q4H PRN PRN PRN Reason: COUGH Norepinephrine Bitartrate 8 mg (/ Sodium Chloride) 250 mls @ 9.375 mls/hr CONT INF .[id number] [facility]; Protocol Last Titration: 10/27/19 06:45 Dose: 6 mcg/min, 11.3 mls/hr Documented by: Potassium Chloride/Sodium Chloride () 1,000 mls @ 150 mls/hr IV .[id number] [facility] Last Admin: 10/27/19 07:04 Dose: 150 mls/hr Documented by: Ceftriaxone Sodium (Rocephin) 1 gm in 50 mls @ 100 mls/hr IV Q12 [facility] Last Infusion: 10/26/19 22:12 Dose: Infused Documented by: Potassium Chloride 40 meq/ (Sodium Chloride) 120 mls @ 100 mls/hr IV BOLUS X1 ONE Stop: 10/27/19 08:03 Melatonin (Melatonin) 3 mg PO QHS PRN PRN PRN Reason: INSOMNIA Oseltamivir Phosphate (Tamiflu) 75 mg PO BID [facility] Stop: 10/29/19 22:01 Last Admin: 10/26/19 21:43 Dose: 75 mg Documented by: Potassium Chloride (K-Dur) [facility] Last Admin: 10/26/19 18:05 Dose: 20 meq Documented by: Multivit/Folic Acid/Iron (Prenatabs Fa) [facility] Last Admin: 10/26/19 08:18 Dose: 1 tablet Documented by: Prochlorperazine Edisylate (Compazine Iv) 10 mg IV Q6H PRN PRN PRN Reason: VOMITING Last Admin: 10/27/19 01:04 Dose: 10 mg Documented by: Promethazine HCl (Phenergan) 12.5 mg IV Q6H PRN PRN PRN Reason: NAUSEA/VOMITING Sodium Chloride () 10 - 40 ml IV UD PRN PRN Reason: SALINE FLUSH Last Admin: 10/25/19 19:58 Dose: 10 ml Documented by: Throat Lozenges (Cepacol Sore Throat Lozenge) 1 lozenge MUCOUS MEM Q2H PRN PRN PRN Reason: COUGH Last Admin: 10/27/19 01:52 Dose: 1 lozenge Documented by: STROKE Vital Signs/Narrative: Vital Signs Temp Pulse Resp BP Pulse Ox 10/27/19 06:45 99/64 10/27/19 06:30 98/63 10/27/19 06:15 96/56 L 10/27/19 06:00 102 H 16 106/56 L 99 10/27/19 05:45 94 19 H 98/61 100 10/27/19 05:30 121 H 21 H 107/72 99 10/27/19 05:15 96 22 H 99/56 L 100 10/27/19 05:00 92 24 H 96/63 99 10/27/19 04:45 93 24 H 99/64 99 10/27/19 04:30 94 25 H 104/57 L 99 10/27/19 04:15 94 24 H 102/58 L 99 10/27/19 04:00 98.4 F 91 21 H 98/56 L 99 10/27/19 03:45 89 22 H 105/62 99 10/27/19 03:30 89 23 H 96/60 99 10/27/19 03:15 91 25 H 106/59 L 99 Medical Necessity - Tobacco Use Smoking Status: Never smoker Assessment/Plan All Active Problems SIRS (systemic inflammatory response syndrome) (Acute) (Acute) Patient is a 24-year-old lady who is 26 weeks presented with generalized malaise associated with fever shortness of breath and cough 1. Septic shock secondary to influenza B pneumonia complicated by streptococcal pneumonia ?Etiology not clear at this point patient had significant leukocytosis with a left shift. Ordered chest x-ray urinalysis as well as influenza assay if negative will pursue a COVID 19 test. Patient was transferred from the OB unit to the intensive care unit started on aggressive IV fluid resuscitation broad-spectrum antibiotic therapy with consultation placed to Dr. Ball with intensive care -10/26/2019 patient influenza B assay came back positive. Patient isolation for call with test discontinued. Blood cultures also came back positive for strep pneumo. Patient had to be started on Levophed due to low blood pressure. Antibiotics subsequently adjusted with discontinuation of vancomycin and cefepime and initiation of Tamiflu and Rocephin. ?10/27/2019; patient seen still remains on Levophed in the ICU. 2. Suspected viral syndrome - management as above 3. 26 weeks of gestation ?Consult placed to patient [employer] Joseph Maurer 4. Hypokalemia ?Corrected per protocol 5. Hyponatremia -do suspect hypovolemic hyponatremia patient on saline with subsequent monitoring of electrolyte 6. DVT prophylaxis ?Low risk Inpatient E&M: [id number] [facility] Hosp L2
[2019-10-27 07:22] LABS: Magnesium 1.9 mg/dL (1.6-2.6)
[2019-10-27] MEDS: Prenatal Vits Tablet 1 TABLET PO (08:24)
[2019-10-27] MEDS: Oseltamivir Phosphate 75 MG Capsule PO ×2 (08:25→21:07)
--- NOTE | 2019-10-27 09:05 | CM.UR ---
Participated in interdisciplinary rounds this am. Patient is + flu B. Currently is on room air. weaning levo. Discharged plan is home. Jorge Swenson RN, CCM.
[2019-10-27] MEDS: Ceftriaxone 1 GM/50 ML BAG IV ×2 (10:18→21:07)
--- NOTE | 2019-10-27 11:28 | PCM.PN.BLA ---
Progress Note Called up to ICU to check on patient. No pain, ctx, vb at this time. Discussed with RN to call if patient has any -related symptoms. Otherwise to continue current management per hospitalist and hog worker. Daily monitoring performed: FHT 130/mod quan/no accels/no decels [place] No ctx's NST reassuring for gestational age Nanci Croft,
--- NOTE | 2019-10-27 11:55 | NURSING ---
FLORINA Wing obtained monitoring at 11:00. FHR 130, moderate variability, + FM. No CTX. Abd palp soft. on OB unit at 11:45 and reviewed tracing. okay with tracing.
[2019-10-27] MEDS: 0.9% Saline Lock 10 ML Syringe IV ×2 (15:01→19:38)
[2019-10-27] MEDS: Mag Hydrox/Al Hydrox/Simeth 30 ML UDC PO (21:08)
[2019-10-28] VITALS (11 sets, daily range): BP systolic 95–110; BP diastolic 55–77; PULSE 95–114; RESP 19–22; TEMP 36.4–36.9; O2SAT 98–100
[2019-10-28] MEDS: proCHLORPERazine 10 MG/2 ML Vial IV (02:35)
[2019-10-28] MEDS: Benzonatate 100 MG Capsule PO (02:53)
[2019-10-28 05:20] LABS: Hematocrit 29.9 % (37-47); Hemoglobin 10.1 g/dL (12.0-15.0); Mean Corp Hgb Conc 33.8 g/dL (32-36); Mean Corpuscular Hgb 30.6 pg (27.0-32.0); Mean Corpuscular Volume 90.6 fL (81-99); Mean Platelet Vol. 8.9 fl (6.2-12.0); POSITIVE COUNT YES; POSITIVE MORPHOLOGY YES; Platelet Count 200 K/mm3 (150-450); RBC Distribution Width CV 13.8 % (11.6-14.6); RBC Distribution Width SD 44.9 fl (35.1-43.9); White Blood Count 9.2 K/mm3 (4.4-11.0)
[2019-10-28 05:29] LABS: Differential Indicated MANUAL DIFF
[2019-10-28 05:45] LABS: ALB/GLOB Ratio 0.5 RATIO (0.9-2.4); AST(SGOT) 41 U/L (15-37); Alanine Aminotransfer ALT/SGPT 24 U/L (13-56); Albumin, Serum 2.1 g/dL (3.2-5.0); Alkaline Phosphatase 87 U/L (45-117); Anion Gap 6 (5-15); BUN 3 mg/dL (7-18); BUN/Creat Ratio 12.2 RATIO (10-20); Calcium,Total 7.7 mg/dL (8.5-10.1); Chloride 107 mmol/L (98-107); Creatinine, Serum 0.25 mg/dL (0.55-1.02); EST Glomerular Filtration Rate 358 mL/min (>60); Est Glom Filt Rate - Afr Amer 434 mL/min (>60); Estimated Creatinine Clearance 269.71 ml/min; Globulin 4.5 g/dL (2.2-4.2); Glucose 72 mg/dL (74-106); Protein, Total 6.6 g/dL (6.4-8.2); Sodium Level 136 mmol/L (136-145)
[2019-10-28 06:15] LABS: Lymphocyte 16 % (19-41); Metamyelocyte 6 % (0-1); Monocyte 1 % (0-10); Myelocyte 1 (0-0); Neutrophil-Band 16 % (0-5); Neutrophil-Segmented 60 % (47-70); Total Cells Counted 100 (MANUAL DIFF)
--- NOTE | 2019-10-28 06:15 | PCM.PN.INT ---
Subjective: The patient was seen and examined at the bedside this morning. Events from the last 24 hours have been reviewed. The patient is currently afebrile, hemodynamically stable and maintaining appropriate oxygen saturations on room air. The patient was able to weaned from levophed yesterday around 10am. She continues to have a cough but denies the presence of shortness of breath. Objective: The patient's most recent lab work, culture data and imaging studies have all been personally reviewed. Rapid influenza screen was positive for influenza B. Blood culture dated October 24 was positive for Streptococcus pneumoniae. General: Alert, Cooperative, No apparent distress HEENT: Atraumatic, Normocephalic Oral: No Gingival or Mucosal Lesions/ Ulcerations Neck: Supple, No Nodes, Trachea Midline, - - Right IJ TLC in place Lungs: Normal air movement, No rhonchi, No wheeze, No rales Cardiovascular: Regular rate, Regular Rhythm, Normal S1, Normal S2, No murmurs Abdomen: Bowel Sounds Present, Soft, Non Tender Extremities: No clubbing, No cyanosis, No edema Skin: No breakdown Musculoskeletal: No Tenderness to Palpation of Joints or Extremities Lymphatic: No Cervical, Supraclavicular, or Inguinal Adenopathy Neurological: Cranial nerves II-XII grossly intact, Neuro grossly intact Psych/Mental Status: Alert and oriented to time, place, person, mood and affect Vital Signs Temp Pulse Resp BP Pulse Ox 97.6 F L 95 20 H 107/55 L 99 10/28/19 05:00 10/28/19 06:00 10/28/19 06:00 10/28/19 06:00 10/28/19 06:00 Oxygen Delivery Method Room Air Weight: 155 lb 6.814 oz Body Mass Index (BMI) 27.8 Intake and Output for Last 24 Hours 10/26/19 10/27/19 10/28/19 23:59 23:59 23:59 Intake Total 6602.84 / 6608.47 5567.54 / 5925.04 1450.0 / 1450.0 Output Total 4000 / 4000 3250 / 3250 Balance 2602.84 / 2608.47 2317.54 / 2675.04 1450.0 / 1450.0 Labs (Last 48 Hours) 10/26/19 10/26/19 10/27/19 06:05 06:05 04:45 WBC 21.2 H 16.4 H RBC 3.19 L 3.34 L Hgb 9.2 L 10.0 L Hct 28.1 L 29.6 L MCV 88.1 88.6 MCH 28.8 29.9 MCHC 32.7 33.8 RDW Std Deviation 44.6 H 43.2 RDW Coeff of [place] 13.8 13.5 Plt Count 184 211 MPV 9.3 8.9 Immature Gran % (Auto) 2.300 H 2.000 H Neut % (Auto) 87.4 H 84.3 H Lymph % (Auto) 6.4 L 9.5 L [place] % (Auto) 3.6 3.9 Eos % (Auto) 0.2 0.1 Baso % (Auto) 0.1 0.2 Absolute Neuts (auto) 18.5 H 13.8 H Absolute Lymphs (auto) 1.36 1.55 Nucleated RBC % 0 0 Differential Comment SCANNED Sodium 142 Potassium 3.2 L Chloride 112 H Carbon Dioxide 21.0 Anion Gap 9 BUN 2 L Creatinine 0.40 L Estim Creat Clear Calc 168.57 Est GFR (MDRD) Af Amer 245 Est GFR (MDRD) Non-Af 203 BUN/Creatinine Ratio 5.0 L Glucose 96 Calcium 7.4 L Magnesium Total Bilirubin 0.80 AST 22 ALT 16 Alkaline Phosphatase 73 Total Protein 6.0 L Albumin 2.1 L Globulin 3.9 Albumin/Globulin Ratio 0.5 L 10/27/19 10/27/19 10/28/19 04:45 04:45 05:10 WBC 9.2 RBC 3.30 L Hgb 10.1 L Hct 29.9 L MCV 90.6 MCH 30.6 MCHC 33.8 RDW Std Deviation 44.9 H RDW Coeff of [place] 13.8 Plt Count 200 MPV 8.9 Immature Gran % (Auto) Neut % (Auto) Not Reportable Lymph % (Auto) [place] % (Auto) Eos % (Auto) Baso % (Auto) Absolute Neuts (auto) Pending Absolute Lymphs (auto) Nucleated RBC % Differential Comment Sodium 138 Potassium 3.0 L Chloride 107 Carbon Dioxide 21.0 Anion Gap 10 BUN 1 L Creatinine 0.24 L Estim Creat Clear Calc 280.94 Est GFR (MDRD) Af Amer 446 Est GFR (MDRD) Non-Af 369 BUN/Creatinine Ratio 4.2 L Glucose 94 Calcium 7.3 L Magnesium 1.9 Total Bilirubin 0.50 AST 18 ALT 16 Alkaline Phosphatase 86 Total Protein 6.2 L Albumin 2.1 L Globulin 4.1 Albumin/Globulin Ratio 0.5 L 10/28/19 05:10 WBC RBC Hgb Hct MCV MCH MCHC RDW Std Deviation RDW Coeff of [place] Plt Count MPV Immature Gran % (Auto) Neut % (Auto) Lymph % (Auto) [place] % (Auto) Eos % (Auto) Baso % (Auto) Absolute Neuts (auto) Absolute Lymphs (auto) Nucleated RBC % Differential Comment Sodium 136 Potassium 4.0 Chloride 107 Carbon Dioxide 23.0 Anion Gap 6 BUN 3 L Creatinine 0.25 L Estim Creat Clear Calc 269.71 Est GFR (MDRD) Af Amer 434 Est GFR (MDRD) Non-Af 358 BUN/Creatinine Ratio 12.2 Glucose 72 L Calcium 7.7 L Magnesium Total Bilirubin 0.50 AST 41 H ALT 24 Alkaline Phosphatase 87 Total Protein 6.6 Albumin 2.1 L Globulin 4.5 H Albumin/Globulin Ratio 0.5 L Microbiology 10/25/19 15:20 Blood Culture (Wb) - Anticubital Right Blood Culture - Preliminary No growth in 48 hours. 10/25/19 13:15 Urine, Clean Catch Urine Culture - Preliminary Culture exhibits no growth. 10/25/19 13:15 Urine, Clean Catch Streptococcus pneumoniae Antigen (M - Final 10/25/19 13:15 Urine, Clean Catch Legionella Antigen - Final 10/25/19 15:05 Blood Culture (Wb) - Other Bacteria Detection (PCR) - Final Streptococcus pneumoniae 10/25/19 15:05 Blood Culture (Wb) - Other Blood Culture - Preliminary Streptococcus pneumoniae Clinical Impression(s) from Imaging Studies Chest X-Ray 10/25/19 12:30 IMPRESSION: Patchy right lower lobe and right suprahilar infiltrates. Electronically Signed: Luca Garcia, at 15:48 EDT , Service support , Chest X-Ray 10/26/19 09:35 IMPRESSION: The tip of the right internal jugular venous catheter is at the junction of the superior vena cava and right atrium. Since prior study, there has been progression of the right lower lobe infiltrate. Electronically Signed: Luca Garcia, at 10:30 EDT , Service support , Medical Necessity - Tobacco Use Smoking Status: Never smoker Assessment/Plan All Active Problems SIRS (systemic inflammatory response syndrome) (Acute) (Acute) RECOMMENDATIONS: 1. Continue antibiotics and Tamiflu per infectious diseases recommendations. 2. Remove central venous catheter. 3. Discontinue supplemental IV fluids. 4. Encourage incentive spirometer use while in bed. 5. The patient is medically stable for transfer out of the intensive care unit. IMPRESSIONS: 1. Septic shock secondary to influenza B infection coupled with streptococcal pneumonia/bacteremia Improved clinically. The patient has been able to be weaned from vasopressor support and remains hemodynamically stable. She is on an appropriate antibiotic and Tamiflu regimen per ID recommendations. Continuous fluids can be discontinued from my perspective. The patient's central venous catheter can be removed. 2. 26 weeks Continue monitoring and supportive measures per OB recommendations. This note was generated with [employer] dictation software. It may contain incorrect words, spelling, and punctuation that were not noted in checking the note before signing. Inpatient E&M: [id number] [facility] [[email or web address] Hosp L3
[2019-10-28 06:17] LABS: Neutrophil # 6.99 X10^3/uL (2.7-7.7)
[2019-10-28 06:18] LABS: Absolute Lymphocyte Count 1.47 X10^3/uL (0.83-4.51); Lymphocyte # 1.47 X10^3/ul (4.0)
[2019-10-28 06:21] LABS: Platelet Estimate ADEQUATE (ADEQ)
[2019-10-28 06:40] LABS: Bedside Glucose 84 mg/dL (70-110)
--- NOTE | 2019-10-28 07:04 | PCM.PN.HOSP ---
Patient Problems: Active and Suspected Problems SIRS (systemic inflammatory response syndrome) (Acute) (Acute) Objective: GENERAL: cooperative appears ill looking HEENT: Atraumatic; EYES; Anicteric, Normal Conjunctiva NECK; supple, normal thyroid, RESPIRATORY: Diminished to auscultation CARDIOVASCULAR: Regular S1 S2, tachycardic GI: soft, normoactive bowel sounds, : Gravid uterus EXTREMITIES: No edema, no clubbing, MUSCULOSKELETAL: no muscle waisting NEURO: Awake; no lateralizing signs. SKIN: No Rash PSYCH; Flat affect Vitals/I&O's: Vital Signs Temp Pulse Resp BP Pulse Ox 97.6 F L 95 20 H 107/55 L 99 10/28/19 05:00 10/28/19 06:00 10/28/19 06:00 10/28/19 06:00 10/28/19 06:00 Oxygen Delivery Method Room Air Weight: 70.5 kg Body Mass Index (BMI) 27.8 Intake and Output for Last 24 Hours 10/26/19 10/27/19 10/28/19 23:59 23:59 23:59 Intake Total 6602.84 / 6608.47 5567.54 / 5925.04 1657.5 / 1657.5 Output Total 4000 / 4000 3250 / 3250 Balance 2602.84 / 2608.47 2317.54 / 2675.04 1657.5 / 1657.5 Microbiology Past 72 Hours 10/25/19 15:20 Blood Culture (Wb) - Anticubital Right Blood Culture - Preliminary No growth in 48 hours. 10/25/19 13:15 Urine, Clean Catch Urine Culture - Preliminary Culture exhibits no growth. 10/25/19 13:15 Urine, Clean Catch Streptococcus pneumoniae Antigen (M - Final 10/25/19 13:15 Urine, Clean Catch Legionella Antigen - Final 10/25/19 15:05 Blood Culture (Wb) - Other Bacteria Detection (PCR) - Final Streptococcus pneumoniae 10/25/19 15:05 Blood Culture (Wb) - Other Blood Culture - Preliminary Streptococcus pneumoniae 10/25/19 13:41 Mucosa - Nasopharyngeal Influenza Types A,B Direct FA (ARA) - Final Influenzae B Laboratory Results 10/27/19 04:45: Magnesium 1.9 10/28/19 05:10: WBC 9.2, RBC 3.30 L, Hgb 10.1 L, Hct 29.9 L, MCV 90.6, MCH 30.6, MCHC 33.8, RDW Std Deviation 44.9 H, RDW Coeff of Mariana 13.8, Plt Count 200, MPV 8.9, Neut % (Auto) Not Reportable, Absolute Neuts (auto) 7.0, Absolute Lymphs (auto) 1.47, Total Counted 100, Neutrophils % (Manual) 60, Band Neutrophils % 16 H, Lymphocytes % (Manual) 16 L, Monocytes % (Manual) 1, Metamyelocytes % 6 H, Myelocytes % 1 H, Diff Path Review November sharmila, Platelet Estimate ADEQUATE 10/28/19 05:10: Sodium 136, Potassium 4.0, Chloride 107, Carbon Dioxide 23.0, Anion Gap 6, BUN 3 L, Creatinine 0.25 L, Estim Creat Clear Calc 269.71, Est GFR (MDRD) Af Amer 434, Est GFR (MDRD) Non-Af 358, BUN/Creatinine Ratio 12.2, Glucose 72 L, Calcium 7.7 L, Total Bilirubin 0.50, AST 41 H, ALT 24, Alkaline Phosphatase 87, Total Protein 6.6, Albumin 2.1 L, Globulin 4.5 H, Albumin/Globulin Ratio 0.5 L 10/28/19 06:34: POC Glucose 84 Current Medications Acetaminophen (Tylenol) 650 mg PO Q6H PRN PRN PRN Reason: Pain Score 1-10/Temp > 100.7 F Last Admin: 10/25/19 23:05 Dose: 650 mg Documented by: Al Hydroxide/Mg Hydroxide (Mylanta Ii) 30 ml PO Q6H PRN PRN PRN Reason: Gastric Burning Last Admin: 10/27/19 21:08 Dose: 30 ml Documented by: Benzonatate (Tessalon Perle) 100 mg PO TID PRN PRN PRN Reason: COUGH Last Admin: 10/28/19 02:53 Dose: 100 mg Documented by: Guaifenesin (Robitussin) 10 ml PO Q4H PRN PRN PRN Reason: COUGH Norepinephrine Bitartrate 8 mg (/ Sodium Chloride) 250 mls @ 9.375 mls/hr CONT INF .[id number] [facility]; Protocol Last Admin: 10/27/19 20:08 Dose: Not Given Documented by: Ceftriaxone Sodium (Rocephin) 1 gm in 50 mls @ 100 mls/hr IV Q12 [facility] Last Infusion: 10/27/19 21:37 Dose: Infused Documented by: Melatonin (Melatonin) 3 mg PO QHS PRN PRN PRN Reason: INSOMNIA Oseltamivir Phosphate (Tamiflu) 75 mg PO BID [facility] Stop: 10/29/19 22:01 Last Admin: 10/27/19 21:07 Dose: 75 mg Documented by: Potassium Chlor[facility] (K-Dur) [facility] Last Admin: 10/27/19 17:13 Dose: 40 meq Documented by: Multivit/Folic Acid/Iron (Prenatabs Fa) [facility] Last Admin: 10/27/19 08:24 Dose: 1 tablet Documented by: Prochlorperazine Edisylate (Compazine Iv) 10 mg IV Q6H PRN PRN PRN Reason: VOMITING Last Admin: 10/28/19 02:35 Dose: 10 mg Documented by: Promethazine HCl (Phenergan) 12.5 mg IV Q6H PRN PRN PRN Reason: NAUSEA/VOMITING Sodium Chloride () 10 - 40 ml IV UD PRN PRN Reason: SALINE FLUSH Last Admin: 10/27/19 19:38 Dose: 10 ml Documented by: Throat Lozenges (Cepacol Sore Throat Lozenge) 1 lozenge MUCOUS MEM Q2H PRN PRN PRN Reason: COUGH Last Admin: 10/27/19 01:52 Dose: 1 lozenge Documented by: STROKE Vital Signs/Narrative: Vital Signs Temp Pulse Resp BP Pulse Ox 10/28/19 06:00 95 20 H 107/55 L 99 10/28/19 05:00 97.6 F L 103 H 20 H 104/66 99 10/28/19 04:00 97 20 H 102/61 98 10/28/19 03:16 98 Medical Necessity - Tobacco Use Smoking Status: Never smoker Assessment/Plan All Active Problems SIRS (systemic inflammatory response syndrome) (Acute) (Acute) Patient is a 24-year-old lady who is 26 weeks presented with generalized malaise associated with fever shortness of breath and cough 1. Septic shock secondary to influenza B pneumonia complicated by streptococcal pneumonia ?Etiology not clear at this point patient had significant leukocytosis with a left shift. Ordered chest x-ray urinalysis as well as influenza assay if negative will pursue a COVID 19 test. Patient was transferred from the OB unit to the intensive care unit started on aggressive IV fluid resuscitation broad-spectrum antibiotic therapy with consultation placed to Dr. Ball with intensive care -10/26/2019 patient influenza B assay came back positive. Patient isolation for call with test discontinued. Blood cultures also came back positive for strep pneumo. Patient had to be started on Levophed due to low blood pressure. Antibiotics subsequently adjusted with discontinuation of vancomycin and cefepime and initiation of Tamiflu and Rocephin. ?10/27/2019; patient seen still remains on Levophed in the ICU. 2. Suspected viral syndrome - management as above 3. 26 weeks of gestation ?Consult placed to patient RIPSAWYER Joseph Maurer 4. Hypokalemia ?Corrected per protocol 5. Hyponatremia -do suspect hypovolemic hyponatremia patient on saline with subsequent monitoring of electrolyte 6. DVT prophylaxis ?Low risk
--- NOTE | 2019-10-28 08:02 | PCM.PN.BLA ---
Progress Note heart rate monitoring reviewed: FHT 130/mod quan/no accels/no decels [place] no ctx's NST reassuring for gestational age Discussed with RN. Pt likely going home this afternoon. Will notify office to contact patient regarding outpatient follow up for care STROKE Vital Signs/Narrative: Vital Signs Temp Pulse Resp BP Pulse Ox 10/28/19 06:00 95 20 H 107/55 L 99 10/28/19 05:00 97.6 F L 103 H 20 H 104/66 99
--- NOTE | 2019-10-28 08:11 | NURSING ---
baseline fhr 135 with moderate variability no contractions seen
--- NOTE | 2019-10-28 08:47 | DS.PCM_ITS ---
Discharge Date and Diagnosis - Problem List Patient Problems: Active and Suspected Problems SIRS (systemic inflammatory response syndrome) (Acute) (Acute) Date of Admission: 10/25/19 Date of Discharge: 10/28/19 - Primary Discharge Diagnosis Active and Suspected Problems SIRS (systemic inflammatory response syndrome) (Acute) (Acute) Hospital Course and Treatment Imaging Results: Clinical Impression(s) from Imaging Studies Chest X-Ray 10/25/19 12:30 IMPRESSION: Patchy right lower lobe and right suprahilar infiltrates. Electronically Signed: Luca Radha, at 15:48 EDT , Service support , Chest X-Ray 10/26/19 09:35 IMPRESSION: The tip of the right internal jugular venous catheter is at the junction of the superior vena cava and right atrium. Since prior study, there has been progression of the right lower lobe infiltrate. Electronically Signed: Luca Garcai, at 10:30 EDT , Service support , Summary of Care Provided: Patient is a 24-year-old lady who is 26 weeks presented with generalized malaise associated with fever shortness of breath and cough 1. Septic shock secondary to influenza B pneumonia complicated by streptococcal pneumonia ?Etiology not clear at this point patient had significant leukocytosis with a left shift. Ordered chest x-ray urinalysis as well as influenza assay if negative will pursue a COVID 19 test. Patient was transferred from the OB unit to the intensive care unit started on aggressive IV fluid resuscitation broad- spectrum antibiotic therapy with consultation placed to Dr. Ball with intensive care -10/26/2019 patient influenza B assay came back positive. Patient isolation for call with test discontinued. Blood cultures also came back positive for strep pneumo. Patient had to be started on Levophed due to low blood pressure. Antibiotics subsequently adjusted with discontinuation of vancomycin and cefepime and initiation of Tamiflu and Rocephin. ?10/27/2019; patient seen still remains on Levophed in the ICU. ?10/28/2019: Patient weaned off Levophed the day prior. Patient feels stable enough to be discharged home. Prescription was written for cefdinir as well as Tamiflu. Patient instructed to follow-up with her ELECTRONIC TECHNOLOGIST for subsequent management 2. Suspected viral syndrome - management as above 3. 26 weeks of gestation ?Consult placed to patient ELECTRONIC TECHNOLOGIST Joseph Maurer 4. Hypokalemia ?Corrected per protocol 5. Hyponatremia -do suspect hypovolemic hyponatremia patient on saline with subsequent monitoring of electrolyte 6. DVT prophylaxis ?Low risk Patient Problems: Active and Suspected Problems SIRS (systemic inflammatory response syndrome) (Acute) (Acute) Objective: GENERAL: cooperative HEENT: Atraumatic; EYES; Anicteric, Normal Conjunctiva NECK; supple, normal thyroid, RESPIRATORY: Diminished to auscultation CARDIOVASCULAR: Regular S1 S2, GI: soft, normoactive bowel sounds, : Gravid uterus EXTREMITIES: No edema, no clubbing, MUSCULOSKELETAL: no muscle waisting NEURO: Awake; no lateralizing signs. SKIN: No Rash - Physical Exam Vitals/I&O's: Vital Signs Temp Pulse Resp BP Pulse Ox 97.6 F L 95 20 H 107/55 L 99 10/28/19 05:00 10/28/19 07:00 10/28/19 06:00 10/28/19 06:00 10/28/19 06:00 Oxygen Delivery Method Room Air Weight: 70.5 kg Body Mass Index (BMI) 27.8 Intake and Output for Last 24 Hours 10/26/19 10/27/19 10/28/19 23:59 23:59 23:59 Intake Total 6602.84 / 6608.47 5567.54 / 5925.04 1657.5 / 1657.5 Output Total 4000 / 4000 3250 / 3250 Balance 2602.84 / 2608.47 2317.54 / 2675.04 1657.5 / 1657.5 Microbiology Past 72 Hours 10/25/19 13:15 Urine, Clean Catch Urine Culture - Final Culture exhibits no growth. 10/25/19 15:20 Blood Culture (Wb) - Anticubital Right Blood Culture - Preliminary No growth in 48 hours. 10/25/19 13:15 Urine, Clean Catch Streptococcus pneumoniae Antigen (M - Final 10/25/19 13:15 Urine, Clean Catch Legionella Antigen - Final 10/25/19 15:05 Blood Culture (Wb) - Other Bacteria Detection (PCR) - Final Streptococcus pneumoniae 10/25/19 15:05 Blood Culture (Wb) - Other Blood Culture - Preliminary Streptococcus pneumoniae 10/25/19 13:41 Mucosa - Nasopharyngeal Influenza Types A,B Direct FA (ARA) - Final Influenzae B Laboratory Results 10/28/19 05:10: WBC 9.2, RBC 3.30 L, Hgb 10.1 L, Hct 29.9 L, MCV 90.6, MCH 30.6, MCHC 33.8, RDW Std Deviation 44.9 H, RDW Coeff of Mariana 13.8, Plt Count 200, MPV 8.9, Neut % (Auto) Not Reportable, Absolute Neuts (auto) 7.0, Absolute Lymphs (auto) 1.47, Total Counted 100, Neutrophils % (Manual) 60, Band Neutrophils % 16 H, Lymphocytes % (Manual) 16 L, Monocytes % (Manual) 1, Metamyelocytes % 6 H, Myelocytes % 1 H, Diff Path Review November, Platelet Estimate ADEQUATE 10/28/19 05:10: Sodium 136, Potassium 4.0, Chloride 107, Carbon Dioxide 23.0, Anion Gap 6, BUN 3 L, Creatinine 0.25 L, Estim Creat Clear Calc 269.71, Est GFR (MDRD) Af Amer 434, Est GFR (MDRD) Non-Af 358, BUN/Creatinine Ratio 12.2, Glucose 72 L, Calcium 7.7 L, Total Bilirubin 0.50, AST 41 H, ALT 24, Alkaline Phosphatase 87, Total Protein 6.6, Albumin 2.1 L, Globulin 4.5 H, Albumin/Globulin Ratio 0.5 L 10/28/19 06:34: POC Glucose 84 Current Medications Acetaminophen (Tylenol) 650 mg PO Q6H PRN PRN PRN Reason: Pain Score 1-10/Temp > 100.7 F Last Admin: 10/25/19 23:05 Dose: 650 mg Documented by: Al Hydroxide/Mg Hydroxide (Mylanta Ii) 30 ml PO Q6H PRN PRN PRN Reason: Gastric Burning Last Admin: 10/27/19 21:08 Dose: 30 ml Documented by: Benzonatate (Tessalon Perle) 100 mg PO TID PRN PRN PRN Reason: COUGH Last Admin: 10/28/19 02:53 Dose: 100 mg Documented by: Guaifenesin (Robitussin) 10 ml PO Q4H PRN PRN PRN Reason: COUGH Norepinephrine Bitartrate 8 mg (/ Sodium Chloride) 250 mls @ 9.375 mls/hr CONT INF .[id number] [facility]; Protocol Last Admin: 10/27/19 20:08 Dose: Not Given Documented by: Ceftriaxone Sodium (Rocephin) 1 gm in 50 mls @ 100 mls/hr IV Q12 [facility] Last Infusion: 10/27/19 21:37 Dose: Infused Documented by: Melatonin (Melatonin) 3 mg PO QHS PRN PRN PRN Reason: INSOMNIA Oseltamivir Phosphate (Tamiflu) 75 mg PO BID [facility] Stop: 10/29/19 22:01 Last Admin: 10/27/19 21:07 Dose: 75 mg Documented by: Potassium Chlor[facility] (K-Dur) [facility] Last Admin: 10/27/19 17:13 Dose: 40 meq Documented by: Multivit/Folic Acid/Iron (Prenatabs Fa) [facility] Last Admin: 10/27/19 08:24 Dose: 1 tablet Documented by: Prochlorperazine Edisylate (Compazine Iv) 10 mg IV Q6H PRN PRN PRN Reason: VOMITING Last Admin: 10/28/19 02:35 Dose: 10 mg Documented by: Promethazine HCl (Phenergan) 12.5 mg IV Q6H PRN PRN PRN Reason: NAUSEA/VOMITING Sodium Chloride () 10 - 40 ml IV UD PRN PRN Reason: SALINE FLUSH Last Admin: 10/27/19 19:38 Dose: 10 ml Documented by: Throat Lozenges (Cepacol Sore Throat Lozenge) 1 lozenge MUCOUS MEM Q2H PRN PRN PRN Reason: COUGH Last Admin: 10/27/19 01:52 Dose: 1 lozenge Documented by: Discharge Diet: No Restrictions Discharge Activity: Return to Normal Activity Home Medications: Medications to take at Discharge Vits [Prenatabs FA ] 1 tab PO DAILY 10/25/19 Cefdinir [Omnicef [equiv]] 300 mg PO Q12H #14 cap 10/28/19 Oseltamivir Phosphate [Tamiflu] 75 mg PO BID #6 cap 10/28/19 Potassium Chloride [K-Dur] 20 meq PO BID #60 tab 10/28/19 Following Prescrptions Were Given to Patient: Potassium Chloride [K-Dur] 20 meq PO BIDCM #60 tab Prescription Printed Cefdinir [Omnicef [equiv]] 300 mg PO Q12H #14 cap Prescription Printed Oseltamivir Phosphate [Tamiflu] 75 mg PO BID #6 cap Prescription Printed Primary Care Physician: Care Physician,No Primary [Primary Care Provider] - Please Follow Up With: Ron Ruiz When: in 3-5 days Disposition: Home Minutes spent on discharge:: 35 Patient Condition:: Stable Medical Necessity - Tobacco Use Smoking Status: Never smoker Meaningful Use Info Meaningful Use Diagnoses (Choose all that apply): None applicable Inpatient E&M: 70785 Disch Hosp
--- NOTE | 2019-10-28 08:49 | DCINST_ITS ---
- Discharge Diagnoses Current Active Problems: Current Active and Chronic Problems SIRS (systemic inflammatory response syndrome) (Acute) (Acute) You will use the following diet at home:: No restrictions Your food should be the consistency of: Regular Discharge Activity: Return to Normal Activity Allergies/Adverse Reactions: Allergies No Known Allergies Allergy (Verified 10/25/19 10:11) Medications to take at Discharge Vits [Prenatabs FA ] 1 tab PO DAILY 10/25/19 Cefdinir [Omnicef [equiv]] 300 mg PO Q12H #14 cap 10/28/19 Oseltamivir Phosphate [Tamiflu] 75 mg PO BID #6 cap 10/28/19 Potassium Chloride [K-Dur] 20 meq PO BIDCM #60 tab 10/28/19 The following prescriptions were given: Potassium Chloride [K-Dur] 20 meq PO BIDCM #60 tab Prescription Printed Cefdinir [Omnicef [equiv]] 300 mg PO Q12H #14 cap Prescription Printed Oseltamivir Phosphate [Tamiflu] 75 mg PO BID #6 cap Prescription Printed Primary Care Physician: Care Physician,No Primary [Primary Care Provider] - Test Results: Test results from this visit will be discussed in further detail at your follow- up appointment, if applicable. Please Follow Up With: Ron Ruiz When: in 3-5 days Proposed Discharge Date: 10/28/19
[2019-10-28] MEDS: Prenatal Vits Tablet 1 TABLET PO (08:56)
[2019-10-28] MEDS: Oseltamivir Phosphate 75 MG Capsule PO (08:56)
[2019-10-28] MEDS: Ceftriaxone 1 GM/50 ML BAG IV (09:21)
[2019-10-29 11:48] LABS: Pathologist Review Reviewed
== END 2019-10-28 11:35 | disposition home or self-care (01) | DRG 831 ==
LOC: WPOUT 14:35 → ICU 14:35
PROVIDERS: Internal Medicine; Internal Medicine Critical Care Medicine; Admitting Provider Obstetrics & Gynecology; Referring Provider Obstetrics & Gynecology; Visit Provider Obstetrics & Gynecology
DX: O98.812 Other maternal infectious and parasitic diseases complicating pregnancy, second trimester (principal); A41.89 Other specified sepsis; J10.08 Influenza due to other identified influenza virus with other specified pneumonia; J13 Pneumonia due to Streptococcus pneumoniae; R65.21 Severe sepsis with septic shock; E87.1 Hypo-osmolality and hyponatremia; O99.282 Endocrine, nutritional and metabolic diseases complicating pregnancy, second trimester; E87.6 Hypokalemia; J10.1 Influenza due to other identified influenza virus with other respiratory manifestations; Z3A.26 26 weeks gestation of pregnancy
CPT/HCPCS: 59025; 59050; 71045; 80053; 81001; 82550; 82731; 82962; 83605; 83735; 84112; 85025; 85610; 85730; 87040; 87086; 87088; 87149; 87186; 87449; 87641; 87804; 99218; J7030; J7040; J7050; J7120; A4216; C1751; G0378